=== PATIENT | male | born 1980 | race Caucasian/White ===

== ENCOUNTER → 2017-01-12 | Outpatient (CLI) | payer BC ==
--- NOTE | 2017-01-13 09:28 | XR ---
EXAMINATION TYPE: XR chest 2V DATE OF EXAM: 01/12/2017 COMPARISON: NONE INDICATION: Cough TECHNIQUE: Frontal and lateral views of the chest are obtained. FINDINGS: The heart size is normal. The pulmonary vasculature is normal. There is a cavitary appearing lesion in the right upper lobe measuring 4.2 cm. Additional workup for neoplasm is recommended. Some atelectasis may be along the minor fissure on the lateral projection may be at the right base. T his is less well-visualized frontal projection.. IMPRESSION: 1. Suspected cavitary lesion right apex. CT chest with contrast is recommended for additional evaluat ion. Cavitary pneumonia could be considered within the differential. A Red message has been communicated to Darrin Bailey DO via the [employer] Critical Result system on 01/13/2017 9:24 AM, Message ID [id number].
== END | disposition home or self-care (01) ==
LOC: RADXRMAIN 16:48
PROVIDERS: ATTEND Family Medicine
DX: R05 Cough (principal)
CPT/HCPCS: 71020

== ENCOUNTER → 2017-01-15 | Outpatient (CLI) | payer BC ==
--- NOTE | 2017-01-15 13:04 | CT ---
EXAMINATION TYPE: CT chest w con DATE OF EXAM: 01/15/2017 COMPARISON: Chest x-ray 01/12/2017 HISTORY: Patient complaiins of cough, fever, and body aches. Abnormal xray. CT DLP: 489 mGycm Automated exposure control for dose reduction was used. CONTRAST: CT scan of the chest is performed with IV Contrast, patient injected with 100 mL of Omnipaque 300. FINDINGS: LUNGS: Thick-walled cavitary lesion is noted within the right upper lobe and measures 4.5 x 4.4 cm. T here is surrounding inflammatory change. Micronodularity within the right upper lobe anteriorly. The remainder of the lungs are clear. No evidence of pleural effusion. MEDIASTINUM: Precarinal lymph node measures 1 cm in short axis. Right tracheobronchial lymph node chito sures 9 mm. Subcentimeter superior mediastinal lymph nodes measuring less than 1 cm. 8.4 mm low right paratracheal lymph node. 1 cm right hilar lymph node identified. Thoracic aorta is of normal caliber . The heart is not enlarged. UPPER ABDOMEN: Too small to characterize cystic lesion left hepatic lobe measures 5.3 mm. Mild distal esophageal wall thickening could reflect esophagitis. Correlate clinically. OTHER: No additional significant abnormality is seen. IMPRESSION: 1. Thick-walled cavitary lesion right upper lobe with surrounding inflammatory change and micronodula rity. There is also borderline to mild adenopathy within the mediastinum and right hilum. Findings casas ggest atypical infection such as tuberculosis, fungal infection as well as cavitary pneumonia. Malign savannah is considered less likely although not entirely excluded and follow-up until resolution is advis ed. Pulmonary consult recommended.
== END | disposition home or self-care (01) ==
LOC: RADCTMAIN 12:23
PROVIDERS: ATTEND Family Medicine
DX: R91.1 Solitary pulmonary nodule (principal); R59.0 Localized enlarged lymph nodes
CPT/HCPCS: 71260; Q9967

== ENCOUNTER 2017-01-18 09:47 | Inpatient (IN) | payer BC ==
[2017-01-18] MEDS ORDERED: IPRATROPIUM-ALBUTEROL 3 ML NEB INHALATION PRN (12:37)
[2017-01-18 13:34] LABS: Basophils # (A) 0.1 k/uL (0-0.2); Basophils % (A) 1 %; CH 31.3; CHCM 33.3; Eosinophils # (A) 0.1 k/uL (0-0.7); Eosinophils % (A) 1 %; HCT 46.7 % (39.0-53.0); HDW 2.46; HGB 15.2 gm/dL (13.0-17.5); Luc # (Auto) 0.16; Luc % (Auto) 1; Lymphocytes # (A) 2.2 k/uL (1.0-4.8); Lymphocytes % (A) 14 %; MCH 30.8 pg (25.0-35.0); MCHC 32.6 g/dL (31.0-37.0); MCV 94.4 fL (80.0-100.0); Mean Platelet Volume 6.9; Monocytes # (A) 0.9 k/uL (0-1.0); Monocytes % (A) 6 %; Neutrophils # (A) 11.9 k/uL (1.3-7.7); Neutrophils % (A) 78 %; RBC 4.95 m/uL (4.30-5.90); WBC 15.3 k/uL (3.8-10.6)
[2017-01-18 14:03] LABS: ALT 33 U/L (21-72); AST 16 U/L (17-59); Alkaline Phosphatase 78 U/L (38-126); Anion Gap 9 mmol/L; Blood Urea Nitrogen 10 mg/dL (9-20); Calcium 9.6 mg/dL (8.4-10.2); Carbon Dioxide 30 mmol/L (22-30); Chloride 99 mmol/L (98-107); Glucose 83 mg/dL (74-99); Non-African American GFR(MDRD) >60 (>60 ml/min/1.73 sqM); Potassium 4.8 mmol/L (3.5-5.1); Sodium 138 mmol/L (137-145); Total Bilirubin 0.5 mg/dL (0.2-1.3); Total Protein 7.2 g/dL (6.3-8.2)
[2017-01-18] MEDS: SODIUM CHLORIDE 0.9% 1,000 ML IV SCH (14:14)
[2017-01-18] MEDS: LEVOFLOXACIN 750MG-D5W PMX 750 MG in DEXTROSE/WATER 1 150ML.BAG IVPB SCH (14:14)
[2017-01-18] MEDS: PIPERACILLIN-TAZOBACTAM 3.375 GM in DEXTROSE/WATER 1 50ML.BAG IVPB SCH ×2 (16:11→23:27)
[2017-01-18] MEDS ORDERED: NICOTINE 21MG/24HR PATCH TRANSDERM STA (17:11)
[2017-01-18 18:40] LABS: ALT 27 U/L (21-72); AST 16 U/L (17-59); Alkaline Phosphatase 64 U/L (38-126); Anion Gap 10 mmol/L; Blood Urea Nitrogen 13 mg/dL (9-20); Calcium 9.2 mg/dL (8.4-10.2); Carbon Dioxide 28 mmol/L (22-30); Chloride 98 mmol/L (98-107); Glucose 95 mg/dL (74-99); Non-African American GFR(MDRD) >60 (>60 ml/min/1.73 sqM); Potassium 4.5 mmol/L (3.5-5.1); Sodium 136 mmol/L (137-145); Total Bilirubin 0.5 mg/dL (0.2-1.3); Total Protein 6.7 g/dL (6.3-8.2)
[2017-01-18 20:21] LABS: Basophils # (A) 0.1 k/uL (0-0.2); Basophils % (A) 1 %; CH 31.7; CHCM 33.5; Eosinophils # (A) 0.2 k/uL (0-0.7); Eosinophils % (A) 2 %; HCT 45.6 % (39.0-53.0); HDW 2.33; HGB 15.1 gm/dL (13.0-17.5); Luc # (Auto) 0.18; Luc % (Auto) 2; Lymphocytes # (A) 2.3 k/uL (1.0-4.8); Lymphocytes % (A) 22 %; MCH 31.5 pg (25.0-35.0); MCHC 33.1 g/dL (31.0-37.0); MCV 95.1 fL (80.0-100.0); Mean Platelet Volume 7.7; Monocytes # (A) 0.8 k/uL (0-1.0); Monocytes % (A) 8 %; Neutrophils # (A) 7.1 k/uL (1.3-7.7); Neutrophils % (A) 66 %; RBC 4.79 m/uL (4.30-5.90); RDW 12.9 % (11.5-15.5); WBC 10.7 k/uL (3.8-10.6); WBC (Perox) 10.34
[2017-01-18 20:41] LABS: Manual Review Performed; Toxic Granulation Present
--- NOTE | 2017-01-18 21:38 | HP ---
HISTORY AND PHYSICAL DATE OF ADMISSION: January 18, 2017. PRESENT COMPLAINT: Short of breath. HISTORY OF PRESENTING COMPLAINT: This is a very pleasant 36-year-old patient of Dr. Bailey whose chronic stable medical conditions include: GERD, anxiety depression. The patient has been having chest symptoms for about 2-1/2 weeks he states. He has a cough with some yellow sputum. Run down. Was treated by his family doctor and did not get better. Went to have a chest x- ray and CT scan. The CT scan as he was not getting better. He went to see Dr. Cr and Dr. Cr sent him down to the hospital in isolation to be isolated because of potential for being TB. Not coughing up any blood. The patient has decreased appetite. No obvious fevers. He has lost about 8 pounds in the last 1 week. The patient has no foreign travel. No exposure to any sick people. No contact with TB people. The patient is rather healthy otherwise he states and goes to work and comes home. The patient does smoke cigarettes and was drinking 8 beers a day up until two weeks ago when he cut back. Does about 1 marijuana joint a day. The patient's sputum production mainly in the morning. CT scan is showing a cavitary lesion. REVIEW OF SYSTEMS: Constitutional: Tired. HEENT: None. RESPIRATORY: As above. Cardiovascular none. Gastrointestinal none. Genitourinary: None. Musculoskeletal none. Dermatological and hematologic, lymphatic none. Psychiatry as above. Neurological none. PAST MEDICAL HISTORY: GERD, anxiety, depression. PAST SURGICAL HISTORY: Lump on the back of the head that was removed and found to have calcium deposits. SOCIAL HISTORY: . Smoked for the last 21 years. Drank about 8 beers a day up until 2 weeks ago. Marijuana once a day. The patient works at [employer], recycles metals. FAMILY HISTORY: Mother had stent in her 50s. HOME MEDICATIONS: 1. Prilosec 20 mg a day. 2. Levaquin 750 mg a day. ALLERGIES: Allergies to CODEINE. PHYSICAL EXAMINATION: Temperature 99.1, pulse 74, respiratory rate 16, blood pressure 100/65, pulse ox 97% on room air. GENERAL: Thin built, tired and lying in bed. EYES: Pupils equal. Conjunctivae pale. HEENT: Oral cavity normal. NECK: JVD not raised. Mass not palpable. Respiratory: Lungs slightly decreased breath sounds. Cardiovascular first and second sound normal. No edema. ABDOMEN: Soft, nontender. Liver and spleen not palpable. Lymphatics: No lymph nodes palpable in the neck or axilla. Psychiatry: Alert and oriented times three. Mood and affect normal. INVESTIGATIONS: White count 15.3, hemoglobin 15.2, platelets 652, potassium 4.8. BUN and creatinine is normal. CT scan of the chest shows thick walled cavitary lesion right upper lobe with surrounding inflammatory change and micro nodularity, some mild adenopathy. ASSESSMENT: 1. This is a patient who presents now with 2-1/2 week history of cough with sputum production. No obvious fever, not responding well to IV antibiotics. The patient is here in TB isolation from Dr. Cr office. The patient has no exposure to TB or TB people though. Given history of alcoholism, the patient could well be immunosuppressed. The patient has got an elevated white count. Neutrophilic shift which is more likely a case of acute infection process rather than TB given that he drinks quite a bit. This patient could have also infected cavitary lesion bullae that could be from before. I think TB is less likely. Of course, possibly still there thinking more in terms of an acute bacterial fungal infection. 2. Chronic nicotine dependence. 3. Chronic alcohol dependence. 4. Reactive thrombocytosis. PLAN: Patient currently on TB isolation, on Levaquin and Zosyn. We will add Lovenox for DVT prophylaxis. Care was discussed with the patient. Counseled against smoking. Will be given a nicotine patch. Spoke to Dr. Martinez over the phone. The patient is going for bronchoscopy by Pulmonary tomorrow. Copy to Dr. Bailey. MMODL / IJN: [id number] /
--- NOTE | 2017-01-18 21:43 | P.CONS ---
History of Present Illness - Reason for Consult Consult date: 01/18/17 - Chief Complaint Fever and cough - History of Present Illness Pleasant 36-year-old male presents to Hospital the direction of his physician because of difficulties with pneumonia. The patient relates that more than 2 weeks ago he became acutely ill. At the present time he was having cough some pleuritic discomfort in his chest associated with significant sputum production and fevers. He was having fevers and chills without rigors. He has significant malaise he did not feel well. He continued to work because his boss was out of town. However recently he was feeling much more poorly and took a day off of work. He then sought medical attention. Outpatient chest x- ray was performed that was abnormal. He was then referred to pulmonary. At the office chest x-ray was performed that was abnormal and computed tomography scan was requested. With a very abnormal computed tomography scan the patient was directly admitted to hospital for further intervention. It was concerns to pulmonary abscess and tuberculosis the infectious diseases consultation was requested. The patient relates that he continues to have some cough especially in the morning productive of a large amount of material. However he has no hemoptysis. His appetite has been somewhat off and is lost a bit of weight and is very quite thin. As noted he's had no significant chills or night sweats but did have some fevers. Review of Systems HEENT:Denies headache or acute visual change. Denies sinus or mouth discomforts. Denies neck stiffness or pain. Denies significant oral cavity pain. Denies difficulty on swallowing. Lungs: As per the HPI Cardiovascular: Denies significant shortness of breath, chest pain, chest wall pain, orthopnea, dyspnea on exertion, syncope Gastrointestinal:Denies nausea, vomiting, diarrhea, constipation, hematemesis, melena, hematochezia. No no significant change of bowel habit noticed. Musculoskeletal: denies significant myalgias or arthralgias. No new joint swelling. Denies new back pain. Skin: Denies new rash or lesions. No new ulcers or wounds are related.. Neuro: Denies headache or visual change. Denies any new onset weakness or difficulty with ambulation. Denies falls or seizures. Psychiatric:Denies anxiety or depression. Endocrine: Denies significant fatigue, has had some mild weight loss Past Medical History Past Medical History: GERD/Reflux History of Any Multi-Drug Resistant Organisms: None Reported Additional Past Surgical History / Comment(s): As a child had lumps back of head -removed and found to be calcium deposits. Past Anesthesia/Blood Transfusion Reactions: No Reported Reaction Additional Psychological History / Comment(s): and lives with family with the and his twins who are 6. No 1 else is ill. No family history of tuberculosis. However strong family history of lung disease and smoking. Patient is a heavy tobacco smoker greater than a pack a day since a young age. Also drinks alcohol, almost on a daily basis. Often drinks to the point of passing out. No other recreational drug use is noted. No injection drug use. No experience. No international travel. 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 He is now 64 yrs old. Mother Family Medical History: Pneumonia Additional Family Medical History / Comment(s): Mother gets pneumonia a couple times a year. She is 51 yrs old. Medications and Allergies Home Medications and Allergies Comment(s): Current Medications Albuterol/Ipratropium (Duoneb 0.5 Mg-3 Mg/3 Ml Soln) 3 ml INHALATION RT-QID PRN PRN Reason: Shortness Of Breath Or Wheezing Enoxaparin Sodium (Lovenox) 40 mg SQ HS [facility] Levofloxacin 750 mg/ IV (Solution) 150 mls @ 100 mls/hr IVPB Q24H [facility] Last Admin: 01/18/17 14:14 Dose: 100 mls/hr Piperacillin/Tazobactam/ (Dextrose 3.375 gm/ IV Solution) 50 mls @ 12.5 mls/hr IVPB Q8HR [facility] Last Admin: 01/18/17 16:11 Dose: 12.5 mls/hr Sodium Chloride (Saline 0.9%) 1,000 mls @ 20 mls/hr IV .Q24H [facility] Last Admin: 01/18/17 14:14 Dose: 20 mls/hr Nicotine (Habitrol 21mg/24hr Patch) 1 patch TRANSDERM DAILY [facility] Home Medications Medication Instructions Recorded Confirmed Type Ibuprofen [Advil] 200 mg PO Q8HR PRN 01/18/17 01/18/17 History Levofloxacin [Levaquin] 750 mg PO DAILY 01/18/17 01/18/17 History Omeprazole Magnesium [Prilosec OTC] 20 mg PO DAILY 01/18/17 01/18/17 History Allergies Allergy/AdvReac Type Severity Reaction Status Date / Time codeine AdvReac Unknown Verified 01/18/17 12:14 Childhood Physical Exam Vitals: Vital Signs Temp Pulse Resp BP Pulse Ox 01/18/17 15:00 99.1 F 74 16 100/65 97 01/18/17 11:01 99.1 F 74 18 98/56 95 Intake and Output 01/18/17 01/18/17 01/18/17 06:59 14:59 22:59 Other: # Voids 1 # Bowel Movements 0 Weight 55.338 kg Patient Weight 01/19/17 06:59 Weight 55.338 kg Pleasant 36-year-old male who is of a thin build, he is somewhat tanned because of his work outside, does not appear to be acutely ill HEENT: Anicteric conjunctiva are pink and moist nasal mucosa grossly intact without significant lesions, there is no thrush. Dentition somewhat warm for age Neck: The neck is supple without significant lymphadenopathy or thyromegaly. Lungs: Good bilateral air entry there are scattered expiratory wheezes. Improved minimally with cough. There is evidence of the right posterior upper zone with amphoric sounds, no significant dullness was noted. Few crackles at the bases are noted. Heart: Regular rate and rhythm with an audible S1-S2, no S3 no S4. There is no significant murmur click or rub, PMI was nondisplaced. Abdomen: Positive bowel sounds soft and nontender without palpable masses or organomegaly. There was no guarding or rebound. Extremities: The upper extremities have excellent pulses they are symmetric, no significant petechiae or telangiectasia. No splinter hemorrhages were noted. The lower extremities are free from significant edema. The peripheral pulses were 2+ and symmetric. Neuro: Awake alert oriented to person place and time. There are no acute new gross focal sensory motor deficits. Results CBC & Chem 7: 01/18/17 18:08 01/18/17 18:08 Labs: Abnormal Lab Results - Last 24 Hours (Table) 0901/18/17 01/18/17 Range/Units 12:24 12:50 18:08 WBC 15.3 H 10.7 H (3.8-10.6) k/uL Plt Count 652 H 565 H (150-450) k/uL Neutrophils # 11.9 H (1.3-7.7) k/uL Sodium (137-145) mmol/L AST 16 L (17-59) U/L 01/18/17 Range/Units 18:08 WBC (3.8-10.6) k/uL Plt Count (150-450) k/uL Neutrophils # (1.3-7.7) k/uL Sodium 136 L (137-145) mmol/L AST 16 L (17-59) U/L Laboratory Results WBC 10.7 k/uL (3.8-10.6) H 01/18/17 18:08 RBC 4.79 m/uL (4.30-5.90) 01/18/17 18:08 Hgb 15.1 gm/dL (13.0-17.5) 01/18/17 18:08 Hct 45.6 % (39.0-53.0) 01/18/17 18:08 MCV 95.1 fL (80.0-100.0) 01/18/17 18:08 MCH 31.5 pg (25.0-35.0) 01/18/17 18:08 MCHC 33.1 g/dL (31.0-37.0) 01/18/17 18:08 RDW 12.9 % (11.5-15.5) 01/18/17 18:08 Plt Count 565 k/uL (150-450) H 01/18/17 18:08 Neutrophils % 66 % 01/18/17 18:08 Lymphocytes % 22 % 01/18/17 18:08 Monocytes % 8 % 01/18/17 18:08 Eosinophils % 2 % 01/18/17 18:08 Basophils % 1 % 01/18/17 18:08 Neutrophils # 7.1 k/uL (1.3-7.7) 01/18/17 18:08 Lymphocytes # 2.3 k/uL (1.0-4.8) 01/18/17 18:08 Monocytes # 0.8 k/uL (0-1.0) 01/18/17 18:08 Eosinophils # 0.2 k/uL (0-0.7) 01/18/17 18:08 Basophils # 0.1 k/uL (0-0.2) 01/18/17 18:08 Manual Slide Review Performed 01/18/17 18:08 Toxic Granulation Present 01/18/17 18:08 Sodium 136 mmol/L (137-145) L 01/18/17 18:08 Potassium 4.5 mmol/L (3.5-5.1) 01/18/17 18:08 Chloride 98 mmol/L (98-107) 01/18/17 18:08 Carbon Dioxide 28 mmol/L (22-30) 01/18/17 18:08 Anion Gap 10 mmol/L 01/18/17 18:08 BUN 13 mg/dL (9-20) 01/18/17 18:08 Creatinine 0.99 mg/dL (0.66-1.25) 01/18/17 18:08 Est GFR (MDRD) Af Amer >60 (>60 ml/min/1.73 sqM) 01/18/17 18:08 Est GFR (MDRD) Non-Af >60 (>60 ml/min/1.73 sqM) 01/18/17 18:08 Glucose 95 mg/dL (74-99) 01/18/17 18:08 Calcium 9.2 mg/dL (8.4-10.2) 01/18/17 18:08 Total Bilirubin 0.5 mg/dL (0.2-1.3) 01/18/17 18:08 AST 16 U/L (17-59) L 01/18/17 18:08 ALT 27 U/L (21-72) 01/18/17 18:08 Alkaline Phosphatase 64 U/L (38-126) 01/18/17 18:08 Total Protein 6.7 g/dL (6.3-8.2) 01/18/17 18:08 Albumin 3.5 g/dL (3.5-5.0) 01/18/17 18:08 Chest x-ray: report reviewed CT scan - chest: image reviewed (The significant cavitary lesion right upper lobe is noted) Assessment and Plan (1) Cavitary pneumonia Narrative/Plan: 36-year-old male presents to the hospital with instructions physician because of difficulties by his chest x-ray. Patient has a two-week history of significant illness. First associated with fevers chills cough and sputum production. Continues to have some morning sputum production. The high-grade fevers and chills have improved. He's had some mild weight loss. He is noted to have outpatient workup that included a PPD to his right arm that has been read as negative. Imaging studies of noted show evidence of the cavitary lesion in the right upper lobe. Somewhat thick wall. Indicating potential lack of acuity to this process. He has been seen by pulmonology. There are plans for bronchoscopy tomorrow for further evaluation of this significant cavitary lesion. If bronchoscopy AFB comes back negative his AFB isolation may then be discontinued. In the meantime sputum AFBs have been requested. TB seems to be quite unlikely. With his history of smoking and what appears to be significant alcohol use the possibility of lung abscess and potentially an infected bleb. Antimicrobial therapy with Zosyn and Levaquin are being utilized for now. No history of MRSA infection. We'll continue ongoing supportive care. Respiratory treatments are being given. Pain control is not an issue at this time Fever will be controlled. Sputum and blood cultures are in process We'll check a pre-albumin and supplement as needed, multivitamin will be given and monitor. Status: Acute (2) Fever Status: Acute (3) Leukocytosis Status: Acute (4) Smoker Status: Acute (5) Alcohol use Status: Acute
[2017-01-18] MEDS: ENOXAPARIN 40 MG/0.4 ML SYRINGE SQ SCH (23:27)
[2017-01-18 23:35] LABS: Erythrocyte Sedimentation Rate 26 mm/hr (0-15)
[2017-01-19] MEDS: PIPERACILLIN-TAZOBACTAM 3.375 GM in DEXTROSE/WATER 1 50ML.BAG IVPB SCH ×3 (07:32→23:51)
[2017-01-19] MEDS: NICOTINE 21MG/24HR PATCH TRANSDERM SCH (07:32)
[2017-01-19 09:47] LABS: Basophils # (A) 0.1 k/uL (0-0.2); Basophils % (A) 1 %; CH 31.3; CHCM 33.6; Eosinophils # (A) 0.1 k/uL (0-0.7); Eosinophils % (A) 1 %; HCT 47.3 % (39.0-53.0); HDW 2.48; HGB 15.9 gm/dL (13.0-17.5); Luc # (Auto) 0.13; Luc % (Auto) 1; Lymphocytes # (A) 1.8 k/uL (1.0-4.8); Lymphocytes % (A) 17 %; MCH 31.5 pg (25.0-35.0); MCHC 33.6 g/dL (31.0-37.0); MCV 93.5 fL (80.0-100.0); Mean Platelet Volume 6.1; Monocytes # (A) 0.7 k/uL (0-1.0); Monocytes % (A) 6 %; Neutrophils % (A) 74 %; RBC 5.06 m/uL (4.30-5.90); RDW 11.9 % (11.5-15.5); WBC 10.8 k/uL (3.8-10.6); WBC (Perox) 11.28
[2017-01-19 09:52] LABS: Anion Gap 9 mmol/L; Blood Urea Nitrogen 12 mg/dL (9-20); Calcium 9.6 mg/dL (8.4-10.2); Carbon Dioxide 28 mmol/L (22-30); Chloride 101 mmol/L (98-107); Glucose 90 mg/dL (74-99); Non-African American GFR(MDRD) >60 (>60 ml/min/1.73 sqM); Potassium 4.9 mmol/L (3.5-5.1); Sodium 138 mmol/L (137-145)
[2017-01-19] MEDS: MULTIVITAMINS, THERA 1 EACH TAB PO SCH (12:35)
[2017-01-19] MEDS: LEVOFLOXACIN 750MG-D5W PMX 750 MG in DEXTROSE/WATER 1 150ML.BAG IVPB SCH (12:37)
[2017-01-19] MEDS: SODIUM CHLORIDE 0.9% 1,000 ML IV SCH (14:24)
--- NOTE | 2017-01-19 14:49 | XR ---
EXAMINATION TYPE: XR chest 2V DATE OF EXAM: 01/19/2017 COMPARISON: Chest x-ray January 12, 2017. CT chest January 15, 2017. HISTORY: Productive cough, possible TB. TECHNIQUE: Frontal and lateral views of the chest are obtained. FINDINGS: Cavitary lesion right upper lobe is redemonstrated. Wall appears slightly diminished in thi ckness versus prior studies. There is no new focal air space opacity, pleural effusion, or pneumothor ax seen. The cardiac silhouette size is within normal limits. The osseous structures are intact. IMPRESSION: Persistent cavitary lesion right upper lobe with improvement in wall thickness. No new i nfiltrate is present.
[2017-01-19 15:04] VITALS: BMI 20.2
[2017-01-19] MEDS ORDERED: NICOTINE POLACRILEX 2 MG GUM BUCCAL PRN (15:59)
[2017-01-19] MEDS: LORazepam 0.5 MG TAB PO SCH (16:25)
--- NOTE | 2017-01-19 17:18 | CONS ---
CONSULTATION This is a 36-year-old male who was seen by my partner yesterday in the clinic. He apparently had not been feeling well for a couple of weeks. He apparently saw his primary doctor, Dr. Bailey. He had been treated with antibiotics for what was thought to be like a bronchitis. He was coughing up some phlegm. He had decreased appetite with weight loss. He apparently had a chest x-ray done and a CT scan. Apparently it showed a cavitary lesion. It is not clear to me where the lesion was, because I have not looked at the scans myself. I do not have them. I did order a chest x-ray. He was sent over here to be seen by Dr. Martinez. The concern was possible aspiration pneumonia, anaerobic lung abscess versus tuberculosis. The patient is resting comfortably. He was kept n.p.o. I am not going to be able to do his bronchoscopy today. He does smoke cigarettes and was drinking 8 beers a day. PAST MEDICAL HISTORY: 1. GERD. 2. Anxiety. 3. Depression. SURGICAL HISTORY: Surgical history includes some sort of lump on his back that was surgically removed. SOCIAL HISTORY: Positive for the tobacco use and alcohol use. He drinks about 8 beers a day, smokes about 2 packs a day. Marijuana once a day. FAMILY HISTORY: Positive for cardiac disease in his mother. HOME MEDICATIONS: Home medications include: 1. Prilosec. 2. Levaquin (given to him by Dr. Bailey). ALLERGIES: CODEINE. REVIEW OF SYSTEMS: CONSTITUTIONAL: Negative. NEUROLOGIC: Negative. HEENT: Negative. CARDIOVASCULAR: Negative. PULMONARY: Shortness of breath, cough, phlegm. No hemoptysis. GI: Decreased appetite. : Negative. HEMATOLOGIC: Negative. IMMUNOLOGIC: Negative. ENDOCRINOLOGIC: Negative. DERMATOLOGIC: Negative. PHYSICAL EXAMINATION: Current vital signs include temperature 98, heart rate 84, respiratory rate 16, blood pressure 105/78, mean 87. Room-air saturation 98%. Appears in no acute distress. HEENT examination is grossly unremarkable. Mucous membranes are moist. No oral lesions. NECK: Supple. Full range of motion. No adenopathy or thyromegaly. Neck veins are flat. Cardiovascular examination reveals regular rhythm and rate. S1, S2 normal. No S3, S4 or murmur. Lungs reveal diminished breath sounds, a few scattered rhonchi. No wheezes or crackles. ABDOMEN: Soft. Bowel sounds are heard. Extremities are intact. No cyanosis, clubbing or edema. Skin without rash. Neurologic examination is brief but nonfocal. LABORATORY DATA: No microbiology to report. White count was 10.8; hemoglobin, hematocrit and platelet count essentially normal. Sodium, potassium, chloride, CO2 all normal. BUN and creatinine were normal. The rest of the comprehensive metabolic profile was normal. Sedimentation rate was 26. I did order a chest x-ray, but I have not had an opportunity to see this yet. Dr. Martinez's note is appreciated. ASSESSMENT: 1. Right upper lobe cavitary lesion, likely related to an anaerobic lung abscess in a patient who likely aspirated. 2. Unusual infection such as fungal infection and/or TB certainly is a concern, but much less likely. 3. History of chronic tobacco and alcohol abuse. 4. History of gastroesophageal reflux disease. 5. History of anxiety. 6. History of depression. PLAN: Will order a chest x-ray, 2-view. Additional recommendations and suggestions are forthcoming. I have not seen either the x-ray or the CT scan. Antibiotic per Dr. Martinez. Will continue to follow. No additional recommendations are made. MMODL / IJN: [id number] /
--- NOTE | 2017-01-19 21:21 | P.PN ---
Subjective Principal diagnosis: Pneumonia Pleasant 36-year-old male presents to Hospital the direction of his physician because of difficulties with pneumonia. The patient relates that more than 2 weeks ago he became acutely ill. At the present time he was having cough some pleuritic discomfort in his chest associated with significant sputum production and fevers. He was having fevers and chills without rigors. He has significant malaise he did not feel well. He continued to work because his boss was out of town. However recently he was feeling much more poorly and took a day off of work. He then sought medical attention. Outpatient chest x- ray was performed that was abnormal. He was then referred to pulmonary. At the office chest x-ray was performed that was abnormal and computed tomography scan was requested. With a very abnormal computed tomography scan the patient was directly admitted to hospital for further intervention. It was concerns to pulmonary abscess and tuberculosis the infectious diseases consultation was requested. The patient relates that he continues to have some cough especially in the morning productive of a large amount of material. However he has no hemoptysis. His appetite has been somewhat off and is lost a bit of weight and is very quite thin. As noted he's had no significant chills or night sweats but did have some fevers. Patient has now been seen by pulmonary critical care. Plan for bronchoscopy in the morning. At the present time will have samples for acid-fast bacilli, fungus, routine bacterial cultures, viral panel and cytology. 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 Dentition somewhat warm for age Neck: The neck is supple without significant lymphadenopathy or thyromegaly. Lungs: Good bilateral air entry there are scattered expiratory wheezes. Improved minimally with cough. There is evidence of the right posterior upper zone with amphoric sounds, no significant dullness was noted. Few crackles at the bases are noted. Heart: Regular rate and rhythm with an audible S1-S2, no S3 no S4. There is no significant murmur click or rub, PMI was nondisplaced. Abdomen: Positive bowel sounds soft and nontender without palpable masses or organomegaly. There was no guarding or rebound. Extremities: The upper extremities have excellent pulses they are symmetric, no significant petechiae or telangiectasia. No splinter hemorrhages were noted. The lower extremities are free from significant edema. The peripheral pulses were 2+ and symmetric. Neuro: Awake alert oriented to person place and time. There are no acute new gross focal sensory motor deficits. - Labs CBC & Chem 7: 01/19/17 09:15 01/19/17 09:15 Labs: Abnormal Lab Results - Last 24 Hours (Table) 01/18/17 01/19/17 Range/Units 18:08 09:15 WBC 10.8 H (3.8-10.6) k/uL Plt Count 674 H (150-450) k/uL Neutrophils # 8.0 H (1.3-7.7) k/uL ESR 26 H (0-15) mm/hr Microbiology - Last 24 Hours (Table) 01/18/17 12:50 Blood Culture - Preliminary Blood No Growth after 24 hours 01/18/17 12:35 Blood Culture - Preliminary Blood No Growth after 24 hours Laboratory Results WBC 10.8 k/uL (3.8-10.6) H 01/19/17 09:15 RBC 5.06 m/uL (4.30-5.90) 01/19/17 09:15 Hgb 15.9 gm/dL (13.0-17.5) 01/19/17 09:15 Hct 47.3 % (39.0-53.0) 01/19/17 09:15 MCV 93.5 fL (80.0-100.0) 01/19/17 09:15 MCH 31.5 pg (25.0-35.0) 01/19/17 09:15 MCHC 33.6 g/dL (31.0-37.0) 01/19/17 09:15 RDW 11.9 % (11.5-15.5) 01/19/17 09:15 Plt Count 674 k/uL (150-450) H 01/19/17 09:15 Neutrophils % 74 % 01/19/17 09:15 Lymphocytes % 17 % 01/19/17 09:15 Monocytes % 6 % 01/19/17 09:15 Eosinophils % 1 % 01/19/17 09:15 Basophils % 1 % 01/19/17 09:15 Neutrophils # 8.0 k/uL (1.3-7.7) H 01/19/17 09:15 Lymphocytes # 1.8 k/uL (1.0-4.8) 01/19/17 09:15 Monocytes # 0.7 k/uL (0-1.0) 01/19/17 09:15 Eosinophils # 0.1 k/uL (0-0.7) 01/19/17 09:15 Basophils # 0.1 k/uL (0-0.2) 01/19/17 09:15 Manual Slide Review Performed 01/18/17 18:08 Toxic Granulation Present 01/18/17 18:08 ESR 26 mm/hr (0-15) H 01/18/17 18:08 Sodium 138 mmol/L (137-145) 01/19/17 09:15 Potassium 4.9 mmol/L (3.5-5.1) 01/19/17 09:15 Chloride 101 mmol/L (98-107) 01/19/17 09:15 Carbon Dioxide 28 mmol/L (22-30) 01/19/17 09:15 Anion Gap 9 mmol/L 01/19/17 09:15 BUN 12 mg/dL (9-20) 01/19/17 09:15 Creatinine 0.95 mg/dL (0.66-1.25) 01/19/17 09:15 Est GFR (MDRD) Af Amer >60 (>60 ml/min/1.73 sqM) 01/19/17 09:15 Est GFR (MDRD) Non-Af >60 (>60 ml/min/1.73 sqM) 01/19/17 09:15 Glucose 90 mg/dL (74-99) 01/19/17 09:15 Calcium 9.6 mg/dL (8.4-10.2) 01/19/17 09:15 Total Bilirubin 0.5 mg/dL (0.2-1.3) 01/18/17 18:08 AST 16 U/L (17-59) L 01/18/17 18:08 ALT 27 U/L (21-72) 01/18/17 18:08 Alkaline Phosphatase 64 U/L (38-126) 01/18/17 18:08 Total Protein 6.7 g/dL (6.3-8.2) 01/18/17 18:08 Albumin 3.5 g/dL (3.5-5.0) 01/18/17 18:08 [id number] 236.0 mg/dL (99.0-242.0) 01/18/17 18:08 Microbiology 01/18/17 12:50 Blood Blood Culture - Preliminary No Growth after 24 hours 01/18/17 12:35 Blood Blood Culture - Preliminary No Growth after 24 hours Assessment and Plan (1) Cavitary pneumonia Narrative/Plan: 36-year-old male presents to the hospital with instructions physician because of difficulties by his chest x-ray. Patient has a two-week history of significant illness. First associated with fevers chills cough and sputum production. Continues to have some morning sputum production. The high-grade fevers and chills have improved. He's had some mild weight loss. He is noted to have outpatient workup that included a PPD to his right arm that has been read as negative. Imaging studies of noted show evidence of the cavitary lesion in the right upper lobe. Somewhat thick wall. Indicating potential lack of acuity to this process. He has been seen by pulmonology. There are plans for bronchoscopy tomorrow for further evaluation of this significant cavitary lesion. If bronchoscopy AFB comes back negative his AFB isolation may then be discontinued. In the meantime sputum AFBs have been requested. TB seems to be quite unlikely. With his history of smoking and what appears to be significant alcohol use the possibility of lung abscess and potentially an infected bleb. Antimicrobial therapy with Zosyn and Levaquin are being utilized for now. No history of MRSA infection. We'll continue ongoing supportive care. Respiratory treatments are being given. Pain control is not an issue at this time Fever will be controlled. Sputum and blood cultures are in process and are negative so far Smoking cessation and anxiety have been supported Multivitamin is being utilized. Patient's advised a high protein intake. Bronchoscopy will occur tomorrow deep specimen will be obtained, stat AFB smear should be obtained to determine his ability to be discharged. Status: Acute (2) Fever Status: Acute (3) Leukocytosis Status: Acute (4) Smoker Status: Acute (5) Alcohol use Status: Acute
[2017-01-19] MEDS: ENOXAPARIN 40 MG/0.4 ML SYRINGE SQ SCH (23:01)
[2017-01-20] MEDS: LORazepam 0.5 MG TAB PO SCH ×4 (04:26→22:13)
[2017-01-20] MEDS: PIPERACILLIN-TAZOBACTAM 3.375 GM in DEXTROSE/WATER 1 50ML.BAG IVPB SCH ×2 (07:46→16:36)
[2017-01-20] MEDS: NICOTINE 21MG/24HR PATCH TRANSDERM SCH (07:47)
[2017-01-20 08:56] LABS: Anion Gap 9 mmol/L; Blood Urea Nitrogen 12 mg/dL (9-20); Calcium 9.5 mg/dL (8.4-10.2); Carbon Dioxide 26 mmol/L (22-30); Chloride 102 mmol/L (98-107); Glucose 85 mg/dL (74-99); Non-African American GFR(MDRD) >60 (>60 ml/min/1.73 sqM); Potassium 4.9 mmol/L (3.5-5.1); Sodium 137 mmol/L (137-145)
--- NOTE | 2017-01-20 09:12 | PN ---
PROGRESS NOTE DATE OF SERVICE: 01/19/2017 PRESENTING COMPLAINT: Cough. INTERVAL HISTORY: This is a patient who drinks quite a bit of alcohol and smoker. Admitted with a cavitary lesion. At this point, etiology is unclear. Strongly suspicious to be abscess: TB remains in the differential. Patient's is present in the room. Patient is very keen to leave the hospital, go outside on the campus. There was no bronchoscopy scheduled for this morning. REVIEW OF SYSTEMS: Done for constitutional, cardiovascular, GI, pulmonary with findings as above. The patient still bringing up some yellow sputum especially in the morning. CURRENT MEDICATION: Reviewed, that include IV Levaquin and Zosyn. PHYSICAL EXAMINATION: Temperature 98.1, pulse 76, respirations 18, blood pressure 102/72, pulse ox 100% on room air. GENERAL APPEARANCE: Sitting up, somewhat anxious-appearing. EYES; Pupils equal, conjunctivae normal. NECK: JVD not raised. Mass not palpable. RESPIRATORY EFFORT: Lungs decreased breath sounds. CARDIOVASCULAR: First and second sounds, no edema. ABDOMEN: Soft, nontender. Liver and spleen not palpable. PSYCHIATRY: Alert and oriented x3. Mood and affect very anxious-appearing. INVESTIGATIONS: White count 10.8, potassium 4.9. ASSESSMENT: 1. Cavitary lesion, suspect abscess. Could be fungal, less likely TB. 2. Chronic nicotine dependence. 3. Chronic alcohol dependence. 4. Reactive [QAMARKER). 5. Anxiety, uncontrolled. PLAN: I had a lengthy talk with the patient and present, told him it is not safe for him to go out and should not be done until the TB is taken care of. I will also add nicotine gum with patch. Will also give some Ativan. Care was discussed at length. Total time spent was 40 minutes with over 25 minutes of discussion. MMODL / IJN: [id number] /
[2017-01-20 10:24] LABS: Basophils # (A) 0.1 k/uL (0-0.2); Basophils % (A) 1 %; CH 30.8; CHCM 32.8; Eosinophils # (A) 0.2 k/uL (0-0.7); Eosinophils % (A) 3 %; HCT 46.6 % (39.0-53.0); HDW 2.43; HGB 15.7 gm/dL (13.0-17.5); Luc # (Auto) 0.16; Luc % (Auto) 2; Lymphocytes # (A) 1.8 k/uL (1.0-4.8); Lymphocytes % (A) 21 %; MCH 31.7 pg (25.0-35.0); MCHC 33.6 g/dL (31.0-37.0); MCV 94.2 fL (80.0-100.0); Mean Platelet Volume 7.4; Monocytes # (A) 0.6 k/uL (0-1.0); Monocytes % (A) 7 %; Neutrophils # (A) 5.6 k/uL (1.3-7.7); Neutrophils % (A) 67 %; RBC 4.94 m/uL (4.30-5.90); WBC 8.5 k/uL (3.8-10.6); WBC (Perox) 8.15
--- NOTE | 2017-01-20 11:48 | P.PN ---
Subjective Progress note dated 01/20/2017 This is a 36-year-old male who was seen by my partner in the clinic 2 days ago. His primary physician is Dr. Renae Torrez. He apparently developed a bronchitis/upper respiratory like illness. Treated with antibiotics without much improvement. Chest x-ray and CAT scan showed a cavitary lesion in the right upper lobe. The patient was placed on Levaquin and Zosyn per infectious disease. Today we'll do a bronchoscopy airway examination therapy lavage and BAL and also plan on doing brushes and biopsies of the right upper lobe lesion. On lateral chest x-ray looks like it might be the posterior segment of the right upper lobe. The patient otherwise is doing reasonably well. I do not believe this is likely tuberculosis but certainly has a concern. The dose the patient does smoke cigarettes and does drink 8 beers a day. I suspect this is related to aspiration anaerobic lung abscess. Objective - Vital Signs Vital signs: Vital Signs Temp 98.0 F 01/20/17 07:00 Pulse 83 01/20/17 07:00 Resp 16 01/20/17 07:00 BP 106/62 01/20/17 07:00 Pulse Ox 96 01/20/17 07:00 Intake & Output 01/19/17 01/20/17 01/20/17 18:59 06:59 18:59 Weight 55.338 kg Other: Voiding Method Toilet # Voids 3 1 - Exam No acute distress, oriented 3. HEENT examination reveals it to be relatively normal. Mucous membranes are moist. No oral lesions. Neck supple. Full range of motion. No adenopathy or thyromegaly. Neck veins are flat. Cardiovascular examination reveals regular rhythm rate. S1-S2 normal. Lungs reveal few scattered rhonchi. No wheezes or crackles. Breath sounds are equal but slightly diminished. Abdomen soft bowel sounds are heard. Extremities are intact. No cyanosis clubbing or edema. Skin without rash. Neurologic examination is nonfocal. - Labs CBC & Chem 7: 01/20/17 07:58 01/20/17 07:58 Labs: Abnormal Lab Results - Last 24 Hours (Table) 01/19/17 01/20/17 Range/Units 09:15 07:58 Plt Count 605 H (150-450) k/uL Prealbumin 10.0 L (18.0-42.0) mg/dL Microbiology - Last 24 Hours (Table) 01/18/17 12:50 Blood Culture - Preliminary Blood No Growth after 24 hours 01/18/17 12:35 Blood Culture - Preliminary Blood No Growth after 24 hours Assessment and Plan (1) Lung abscess Status: Acute (2) Alcohol use Status: Acute (3) Cavitary pneumonia Status: Acute (4) Fever Status: Acute (5) Leukocytosis Status: Acute (6) Smoker Status: Acute Plan: Plan dated 01/20/2017 The patient will undergo bronchoscopy today. The patient will have washes brushes and biopsies of the right upper lobe lesion. Additional recommendations and suggestions are forthcoming. Prognosis is guarded. Continue on antibiotics. We'll follow. Time with Patient: Less than 30
[2017-01-20] MEDS: MULTIVITAMINS, THERA 1 EACH TAB PO SCH (12:14)
[2017-01-20] MEDS: LEVOFLOXACIN 750MG-D5W PMX 750 MG in DEXTROSE/WATER 1 150ML.BAG IVPB SCH (13:13)
[2017-01-20] MEDS: SODIUM CHLORIDE 0.9% 1,000 ML IV SCH (14:16)
[2017-01-20] MEDS ORDERED: PROPOFOL 10 MG/ML 20 ML VIAL IV ONE (14:58)
[2017-01-20] MEDS ORDERED: MIDAZOLAM 2 MG/2 ML VIAL ONE (14:58)
[2017-01-20] MEDS ORDERED: LIDOCAINE 1% INJ 10MG/ML (20 ML MDV) ONE (14:58)
[2017-01-20] MEDS ORDERED: KETAMINE 10 MG/ML 20 ML VIAL ONE (14:58)
[2017-01-20] MEDS ORDERED: GLYCOPYRROLATE 0.2 MG/ML 2 ML VIAL ONE (14:58)
[2017-01-20] MEDS ORDERED: IV FLUID CONTINUATION 500 ML IV ONE (15:17)
[2017-01-20] MEDS ORDERED: LIDOCAINE 2% INJ 20 MG/ML INTRATRACH ONE (15:31)
--- NOTE | 2017-01-20 16:14 | XR ---
EXAMINATION TYPE: XR chest 1V portable DATE OF EXAM: 01/20/2017 COMPARISON: Prior chest x-ray 01/19/2017 HISTORY: Status post bronchoscopy TECHNIQUE: Single frontal view of the chest is obtained. FINDINGS: There is no evident pneumothorax or pleural effusion. Right upper lobe cavitary lesion is again noted. There are overlying cardiac leads. IMPRESSION: No evident complication status post bronchoscopy.
--- NOTE | 2017-01-20 16:15 | FL ---
EXAMINATION TYPE: FL bronchoscopy DATE OF EXAM: 01/20/2017 COMPARISON: NONE HISTORY: Right upper lobe lesion Fluoroscopy support supplied to the referring clinician. See dictated report from pulmonary, 2 minut es 57 seconds fluoroscopy time, 2 intraoperative images document the procedure
--- NOTE | 2017-01-20 17:19 | PN ---
PROGRESS NOTE DATE OF SERVICE: 01/20/17 PRESENT COMPLAINT: Cough. INTERVAL HISTORY: This patient drinks quite a bit of alcohol and smokes. Admitted with a cavitary lesion. Being ruled out for TB though felt to be unlikely. [place] more likely to be infectious process or could be fungal. The patient is in an isolated room. is present. Sputum production has gone down. Patient is sitting up on his laptop. REVIEW OF SYSTEMS: Done for constitutional, cardiovascular, GI, pulmonary, relevant findings as above. CURRENT MEDICATIONS: Reviewed that include IV Levaquin and Zosyn. PHYSICAL EXAMINATION: Temperature 98, pulse 83, respiratory rate 16, blood pressure 106/62, pulse ox 96% on room air. General appearance sitting on bed, comfortable. Eyes pupils equal. Conjunctivae normal. Neck JVD not raised. Mass not palpable. Respiratory effort lungs decreased breath sounds. Cardiovascular first and second sounds. No edema. ABDOMEN: Soft, nontender. Liver and spleen not palpable. Psychiatry: Alert and oriented times three. Mood and affect much more comfortable today. INVESTIGATIONS: White count 8.5, potassium 4.9 and urine Legionella antigen is negative. ASSESSMENT: 1. Cavitary lesions suspect abscess, could be fungal, less likely TB. 2. Chronic nicotine dependence. 3. Chronic alcohol dependence. 4. Anxiety not otherwise specified. Better controlled. PLAN: Care was discussed with the patient and . Await bronchoscopy. In the mean time, continue the antibiotics. Like stated before, TB felt to be less likely. MMODL / IJN: [id number] /
[2017-01-20 20:26] LABS: RBC, Body Fluid 13333 /uL
--- NOTE | 2017-01-20 20:42 | P.PN ---
Subjective Principal diagnosis: Pneumonia Pleasant 36-year-old male presents to Hospital the direction of his physician because of difficulties with pneumonia. The patient relates that more than 2 weeks ago he became acutely ill. At the present time he was having cough some pleuritic discomfort in his chest associated with significant sputum production and fevers. He was having fevers and chills without rigors. He has significant malaise he did not feel well. He continued to work because his boss was out of town. However recently he was feeling much more poorly and took a day off of work. He then sought medical attention. Outpatient chest x- ray was performed that was abnormal. He was then referred to pulmonary. At the office chest x-ray was performed that was abnormal and computed tomography scan was requested. With a very abnormal computed tomography scan the patient was directly admitted to hospital for further intervention. It was concerns to pulmonary abscess and tuberculosis the infectious diseases consultation was requested. The patient relates that he continues to have some cough especially in the morning productive of a large amount of material. However he has no hemoptysis. His appetite has been somewhat off and is lost a bit of weight and is very quite thin. As noted he's had no significant chills or night sweats but did have some fevers. Patient has now been seen by pulmonary critical care. Bronchoscopy has now occurred. He is much more calm this evening after the procedure. At the present time will have samples for acid-fast bacilli, fungus , routine bacterial cultures, viral panel and cytology. He is aware that once we have acid-fast bacilli stains back, if they are negative then he likely would've discharged home to complete a course of oral antibiotic therapy. He is much more calm and less anxious today. He has noted he is now much less short of breath his cough is improved. Post- bronchoscopy as he had a bit of hemoptysis which is improved already this evening. He had transient epistaxis it is very resolved. Feeling considerably better this evening. 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 Dentition somewhat warm for age there is no evidence of any further epistaxis. There is no evidence of any blood in the oral cavity. There is no facial swelling. No tenderness over the frontal or maxillary sinuses at this time. Neck: The neck is supple without significant lymphadenopathy or thyromegaly. Trachea is midline without tenderness. Lungs: Good bilateral air entry there are scattered expiratory wheezes. Improved minimally with cough. There is evidence of the right posterior upper zone with amphoric sounds, no significant dullness was noted. Few crackles at the bases are noted. Heart: Regular rate and rhythm with an audible S1-S2, no S3 no S4. There is no significant murmur click or rub, PMI was nondisplaced. Abdomen: Positive bowel sounds soft and nontender without palpable masses or organomegaly. There was no guarding or rebound. Extremities: The upper extremities have excellent pulses they are symmetric, no significant petechiae or telangiectasia. No splinter hemorrhages were noted. The lower extremities are free from significant edema. The peripheral pulses were 2+ and symmetric. Neuro: Awake alert oriented to person place and time. There are no acute new gross focal sensory motor deficits. - Labs CBC & Chem 7: 01/20/17 07:58 01/20/17 07:58 Labs: Abnormal Lab Results - Last 24 Hours (Table) 01/19/17 01/20/17 Range/Units 09:15 07:58 Plt Count 605 H (150-450) k/uL Prealbumin 10.0 L (18.0-42.0) mg/dL Microbiology - Last 24 Hours (Table) 01/18/17 12:50 Blood Culture - Preliminary Blood No Growth after 48 hours 01/18/17 12:35 Blood Culture - Preliminary Blood No Growth after 48 hours Laboratory Results WBC 8.5 k/uL (3.8-10.6) 01/20/17 07:58 RBC 4.94 m/uL (4.30-5.90) 01/20/17 07:58 Hgb 15.7 gm/dL (13.0-17.5) 01/20/17 07:58 Hct 46.6 % (39.0-53.0) 01/20/17 07:58 MCV 94.2 fL (80.0-100.0) 01/20/17 07:58 MCH 31.7 pg (25.0-35.0) 01/20/17 07:58 MCHC 33.6 g/dL (31.0-37.0) 01/20/17 07:58 RDW 12.0 % (11.5-15.5) 01/20/17 07:58 Plt Count 605 k/uL (150-450) H 01/20/17 07:58 Neutrophils % 67 % 01/20/17 07:58 Lymphocytes % 21 % 01/20/17 07:58 Monocytes % 7 % 01/20/17 07:58 Eosinophils % 3 % 01/20/17 07:58 Basophils % 1 % 01/20/17 07:58 Neutrophils # 5.6 k/uL (1.3-7.7) 01/20/17 07:58 Lymphocytes # 1.8 k/uL (1.0-4.8) 01/20/17 07:58 Monocytes # 0.6 k/uL (0-1.0) 01/20/17 07:58 Eosinophils # 0.2 k/uL (0-0.7) 01/20/17 07:58 Basophils # 0.1 k/uL (0-0.2) 01/20/17 07:58 Manual Slide Review Performed 01/18/17 18:08 Toxic Granulation Present 01/18/17 18:08 ESR 26 mm/hr (0-15) H 01/18/17 18:08 Sodium 137 mmol/L (137-145) 01/20/17 07:58 Potassium 4.9 mmol/L (3.5-5.1) 01/20/17 07:58 Chloride 102 mmol/L (98-107) 01/20/17 07:58 Carbon Dioxide 26 mmol/L (22-30) 01/20/17 07:58 Anion Gap 9 mmol/L 01/20/17 07:58 BUN 12 mg/dL (9-20) 01/20/17 07:58 Creatinine 0.98 mg/dL (0.66-1.25) 01/20/17 07:58 Est GFR (MDRD) Af Amer >60 (>60 ml/min/1.73 sqM) 01/20/17 07:58 Est GFR (MDRD) Non-Af >60 (>60 ml/min/1.73 sqM) 01/20/17 07:58 Glucose 85 mg/dL (74-99) 01/20/17 07:58 Calcium 9.5 mg/dL (8.4-10.2) 01/20/17 07:58 Total Bilirubin 0.5 mg/dL (0.2-1.3) 01/18/17 18:08 AST 16 U/L (17-59) L 01/18/17 18:08 ALT 27 U/L (21-72) 01/18/17 18:08 Alkaline Phosphatase 64 U/L (38-126) 01/18/17 18:08 Total Protein 6.7 g/dL (6.3-8.2) 01/18/17 18:08 Albumin 3.5 g/dL (3.5-5.0) 01/18/17 18:08 Prealbumin 10.0 mg/dL (18.0-42.0) L 01/19/17 09:15 [id number] 236.0 mg/dL (99.0-242.0) 01/18/17 18:08 Fluid Source Bronchial Wash 01/20/17 12:00 Fluid Color Red 01/20/17 12:00 Fluid Appearance Blood Tinged 01/20/17 12:00 Fluid RBC 23616 /uL 01/20/17 12:00 Fluid Nucleated Cells 1283 /uL 01/20/17 12:00 Urine Legionella Ag Not detected (Not detected) 01/18/17 17:13 Microbiology 01/18/17 12:50 Blood Blood Culture - Preliminary No Growth after 48 hours 01/18/17 12:35 Blood Blood Culture - Preliminary No Growth after 48 hours The multiple specimens have been sent to the laboratory for acid fast, fungus, routine bacterial, anaerobic, viral and of course the stat AFB smear to determine if he can be released from isolation Assessment and Plan (1) Cavitary pneumonia Narrative/Plan: 36-year-old male presents to the hospital with instructions physician because of difficulties by his chest x-ray. Patient has a two-week history of significant illness. First associated with fevers chills cough and sputum production. Continues to have some morning sputum production. The high-grade fevers and chills have improved. He's had some mild weight loss. He is noted to have outpatient workup that included a PPD to his right arm that has been read as negative. Imaging studies of noted show evidence of the cavitary lesion in the right upper lobe. Somewhat thick wall. Indicating potential lack of acuity to this process. He has been seen by pulmonology. There are plans for bronchoscopy tomorrow for further evaluation of this significant cavitary lesion. If bronchoscopy AFB comes back negative his AFB isolation may then be discontinued. In the meantime sputum AFBs have been requested. TB seems to be quite unlikely. With his history of smoking and what appears to be significant alcohol use the possibility of lung abscess and potentially an infected bleb. Antimicrobial therapy with Zosyn and Levaquin are being utilized for now. No history of MRSA infection. We'll continue ongoing supportive care. Respiratory treatments are being given. Pain control is not an issue at this time Fever will be controlled. Sputum and blood cultures are in process and are negative so far Smoking cessation and anxiety have been supported We discussed his smoking cessation further today. He has not been hospital for multiple days. He is on his way to becoming a nonsmoker. We would like to support him in his endeavor to become a nonsmoker with further smoking cessation aids after his discharge. Multivitamin is being utilized. Patient's advised a high protein intake. Bronchoscopy has occurred. The stat AFB smear is pending. Pulses become available, as I suspect it will be negative. We'll be released from isolation and likely discharged home to complete a course of oral antimicrobial therapy. If possible moxifloxacin 400 mg orally each day for 10 days should be utilized for this complex right upper lobe cavitary lung abscess. He'll need to follow in the office for both pulmonary and infectious disease at discharge. Status: Acute (2) Fever Status: Acute (3) Leukocytosis Status: Acute (4) Smoker Status: Acute (5) Alcohol use Status: Acute
--- NOTE | 2017-01-20 20:46 | PCN ---
PROCEDURE NOTE PROCEDURE: A bronchoscopy, airway examination, therapeutic lavage, BAL right upper lobe brushings, right upper lobe transbronchial biopsies. PREOP DIAGNOSIS: Cavitary lesion right upper lobe. POSTOP DIAGNOSIS: Cavitary lesion right upper lobe. ANESTHESIA: General anesthesia provided by the [employer] and the anesthesiologist. DESCRIPTION OF PROCEDURE: After the patient was adequately sedated and being fully monitored. The bronchoscope was inserted through the right nostril. Passed through the right nasopharynx into the oropharynx. Hypopharynx was identified and topicalized. Hypopharyngeal structures including anterior commissure, true cords, false cords, arytenoid, piriform sinuses, right and left vallecula all appeared normal. After topical topicalization, bronchoscope was pushed through the glottic opening into the trachea. Trachea appeared normal. We did a quick thorough evaluation of the lungs. Left upper lobe and its two segments, the lingula and its two segments, left lower lobe and its four segments, right upper lobe and its three segment, right middle lobe and its two segments and in the right lower lobe and its five segments all appeared relatively normal. There is no dominant mass or lesion. Next, under fluoroscopic guidance, the bronchoscope was positioned into the right upper lobe posterior segment. Brushings were performed times two. Next, under fluoroscopic guidance multiple transbronchial biopsies performed in the right upper lobe. Finally, washings were done in the right upper lobe. The patient tolerated procedure well. There was no significant bleeding. After we assured hemostasis, the bronchoscope was withdrawn. We quickly looked under fluoro to see if there was a pneumothorax. There was none. The bronchoscope was withdrawn. The patient will be recovered. Formal chest x-ray was ordered. MMODL / IJN: [id number] /
[2017-01-20] MEDS: ENOXAPARIN 40 MG/0.4 ML SYRINGE SQ SCH (22:13)
[2017-01-21] MEDS: PIPERACILLIN-TAZOBACTAM 3.375 GM in DEXTROSE/WATER 1 50ML.BAG IVPB SCH ×4 (00:23→23:59)
[2017-01-21] MEDS: NICOTINE 21MG/24HR PATCH TRANSDERM SCH (08:11)
[2017-01-21] MEDS: LORazepam 0.5 MG TAB PO SCH ×3 (08:11→21:04)
[2017-01-21 08:24] LABS: Basophils # (A) 0.1 k/uL (0-0.2); Basophils % (A) 1 %; CH 30.9; CHCM 33.2; Eosinophils # (A) 0.3 k/uL (0-0.7); Eosinophils % (A) 3 %; HCT 46.5 % (39.0-53.0); HDW 2.53; HGB 15.6 gm/dL (13.0-17.5); Luc # (Auto) 0.15; Luc % (Auto) 2; Lymphocytes # (A) 2.2 k/uL (1.0-4.8); Lymphocytes % (A) 26 %; MCH 31.3 pg (25.0-35.0); MCHC 33.5 g/dL (31.0-37.0); MCV 93.5 fL (80.0-100.0); Monocytes # (A) 0.6 k/uL (0-1.0); Monocytes % (A) 7 %; Neutrophils # (A) 4.9 k/uL (1.3-7.7); Neutrophils % (A) 60 %; RBC 4.97 m/uL (4.30-5.90); RDW 12.1 % (11.5-15.5); WBC 8.2 k/uL (3.8-10.6); WBC (Perox) 8.12
[2017-01-21 08:40] LABS: Anion Gap 13 mmol/L; Blood Urea Nitrogen 11 mg/dL (9-20); Calcium 9.7 mg/dL (8.4-10.2); Carbon Dioxide 23 mmol/L (22-30); Chloride 103 mmol/L (98-107); Glucose 91 mg/dL (74-99); Non-African American GFR(MDRD) >60 (>60 ml/min/1.73 sqM); Potassium 4.8 mmol/L (3.5-5.1); Sodium 139 mmol/L (137-145)
--- NOTE | 2017-01-21 11:02 | P.PN ---
Subjective Progress note dated 01/20/2017 This is a 36-year-old male who was seen by my partner in the clinic 2 days ago. His primary physician is Dr. Renae Torrez. He apparently developed a bronchitis/upper respiratory like illness. Treated with antibiotics without much improvement. Chest x-ray and CAT scan showed a cavitary lesion in the right upper lobe. The patient was placed on Levaquin and Zosyn per infectious disease. Today we'll do a bronchoscopy airway examination therapy lavage and BAL and also plan on doing brushes and biopsies of the right upper lobe lesion. On lateral chest x-ray looks like it might be the posterior segment of the right upper lobe. The patient otherwise is doing reasonably well. I do not believe this is likely tuberculosis but certainly has a concern. The dose the patient does smoke cigarettes and does drink 8 beers a day. I suspect this is related to aspiration anaerobic lung abscess. Progress note dated 01/21/2017 36-year-old white male with a abnormal chest x-ray showing a thick wall cavitary lesion right upper lobe he was seen initially by my partner. His primary physician is Dr. Renae Bailey. The patient underwent bronchoscopy brushes washings and transbronchial biopsies of the right upper lobe lesion. Results are currently pending. I suspect the patient probably has a anaerobic lung abscess involving the right upper lobe probably secondary to aspiration of oropharyngeal contents. The patient seemed be doing relatively well. His TB skin test was negative. AFB smears pending. He is clinically doing well and the thickness of the cavity has decreased in size. We'll allow Dr. Martinez the infectious disease doctor to decide on discharge antibiotics. Objective - Vital Signs Vital signs: Vital Signs Temp 98.4 F 01/21/17 07:00 Pulse 71 01/21/17 07:00 Resp 16 01/21/17 07:00 BP 98/50 01/21/17 07:00 Pulse Ox 98 01/21/17 07:00 Intake & Output 01/20/17 01/21/17 01/21/17 18:59 06:59 18:59 Intake Total 300 1050 Balance 300 1050 Intake: IV 300 Intake, IV Titration 1050 Amount Piperacillin-Tazobactam 3 50 .375 gm In Dextrose/Water 1 50ml.bag @ 12.5 mls/hr IVPB Q8HR [facility] Rx#: [id number] Sodium Chloride 0.9% 1, 1000 000 ml @ 20 mls/hr IV . Q24H [facility] Rx#:[id number] Other: Voiding Method Toilet # Voids 2 1 # Bowel Movements 0 - Exam No acute distress, oriented 3. HEENT examination reveals it to be relatively normal. Mucous membranes are moist. No oral lesions. Neck supple. Full range of motion. No adenopathy or thyromegaly. Neck veins are flat. Cardiovascular examination reveals regular rhythm rate. S1-S2 normal. Lungs reveal few scattered rhonchi. No wheezes or crackles. Breath sounds are equal but slightly diminished. Abdomen soft bowel sounds are heard. Extremities are intact. No cyanosis clubbing or edema. Skin without rash. Neurologic examination is nonfocal. - Labs CBC & Chem 7: 01/21/17 08:00 01/21/17 08:00 Labs: Abnormal Lab Results - Last 24 Hours (Table) 01/21/17 Range/Units 08:00 Plt Count 692 H (150-450) k/uL Microbiology - Last 24 Hours (Table) 01/20/17 12:00 Gram Stain - Preliminary Bronchial Washings - Right Bronchial Washings Culture - Preliminary 01/20/17 12:00 Fungal Culture - Preliminary Bronchial Washings - Right 01/20/17 12:00 Acid Fast Bacilli Culture - Preliminary Bronchial Washings - Right 01/18/17 12:50 Blood Culture - Preliminary Blood No Growth after 48 hours 01/18/17 12:35 Blood Culture - Preliminary Blood No Growth after 48 hours Assessment and Plan (1) Lung abscess Status: Acute (2) Alcohol use Status: Acute (3) Cavitary pneumonia Status: Acute (4) Fever Status: Acute (5) Leukocytosis Status: Acute (6) Smoker Status: Acute (7) GERD (gastroesophageal reflux disease) Status: Acute Plan: Plan dated 01/20/2017 The patient will undergo bronchoscopy today. The patient will have washes brushes and biopsies of the right upper lobe lesion. Additional recommendations and suggestions are forthcoming. Prognosis is guarded. Continue on antibiotics. We'll follow. Plan dated 01/21/2017 The patient seemed be doing clinically well. He tolerated the procedure yesterday very well. His PPD skin test was negative. AFB smears are pending from the bronchial wash. The patient likely has anaerobic lung abscess. I suspect he likely aspirated. I will allow Dr. Martinez infectious disease specialist to decide on discharge antibiotics when he thinks is appropriate. From the pulmonary standpoint doing very well. I seriously doubt that he has tuberculosis. Time with Patient: Less than 30
[2017-01-21] MEDS: LEVOFLOXACIN 750MG-D5W PMX 750 MG in DEXTROSE/WATER 1 150ML.BAG IVPB SCH (12:09)
[2017-01-21] MEDS: MULTIVITAMINS, THERA 1 EACH TAB PO SCH (12:10)
[2017-01-21] MEDS: SODIUM CHLORIDE 0.9% 1,000 ML IV SCH (13:53)
[2017-01-21] MEDS: ENOXAPARIN 40 MG/0.4 ML SYRINGE SQ SCH (21:10)
--- NOTE | 2017-01-21 22:54 | P.PN ---
Subjective Principal diagnosis: Pneumonia Pleasant 36-year-old male presents to Hospital the direction of his physician because of difficulties with pneumonia. The patient relates that more than 2 weeks ago he became acutely ill. At the present time he was having cough some pleuritic discomfort in his chest associated with significant sputum production and fevers. He was having fevers and chills without rigors. He has significant malaise he did not feel well. He continued to work because his boss was out of town. However recently he was feeling much more poorly and took a day off of work. He then sought medical attention. Outpatient chest x- ray was performed that was abnormal. He was then referred to pulmonary. At the office chest x-ray was performed that was abnormal and computed tomography scan was requested. With a very abnormal computed tomography scan the patient was directly admitted to hospital for further intervention. It was concerns to pulmonary abscess and tuberculosis the infectious diseases consultation was requested. The patient relates that he continues to have some cough especially in the morning productive of a large amount of material. However he has no hemoptysis. His appetite has been somewhat off and is lost a bit of weight and is very quite thin. As noted he's had no significant chills or night sweats but did have some fevers. Patient has now been seen by pulmonary critical care. Bronchoscopy has now occurred. He is much more calm this evening after the procedure. At the present time will have samples for acid-fast bacilli, fungus , routine bacterial cultures, viral panel and cytology. He is aware that once we have acid-fast bacilli stains back, if they are negative then will discharged home to complete a course of oral antibiotic therapy. He is much more calm and less anxious today. He has noted he is now much less short of breath his cough is improved. Post- bronchoscopy as he had a bit of hemoptysis which is improved already this evening. He had transient epistaxis it is very resolved. Feeling better overall. Objective - Vital Signs Vital signs: Vital Signs Temp 98.6 F 01/21/17 15:00 Pulse 74 01/21/17 15:00 Resp 16 01/21/17 15:00 BP 100/54 01/21/17 15:00 Pulse Ox 98 01/21/17 15:00 Intake & Output 01/21/17 01/21/17 01/22/17 06:59 18:59 06:59 Intake Total 1050 Balance 1050 Weight 55.338 kg Intake: Intake, IV Titration 1050 Amount Piperacillin-Tazobactam 3 50 .375 gm In Dextrose/Water 1 50ml.bag @ 12.5 mls/hr IVPB Q8HR [facility] Rx#: [id number] Sodium Chloride 0.9% 1, 1000 000 ml @ 20 mls/hr IV . 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 Dentition somewhat warm for age there is no evidence of any further epistaxis. There is no evidence of any blood in the oral cavity. There is no facial swelling. No tenderness over the frontal or maxillary sinuses at this time. Neck: The neck is supple without significant lymphadenopathy or thyromegaly. Trachea is midline without tenderness. Lungs: Good bilateral air entry there are scattered expiratory wheezes. Improved minimally with cough. There is evidence of the right posterior upper zone with amphoric sounds, no significant dullness was noted. Few crackles at the bases are noted. Heart: Regular rate and rhythm with an audible S1-S2, no S3 no S4. There is no significant murmur click or rub, PMI was nondisplaced. Abdomen: Positive bowel sounds soft and nontender without palpable masses or organomegaly. There was no guarding or rebound. Extremities: The upper extremities have excellent pulses they are symmetric, no significant petechiae or telangiectasia. No splinter hemorrhages were noted. The lower extremities are free from significant edema. The peripheral pulses were 2+ and symmetric. Neuro: Awake alert oriented to person place and time. There are no acute new gross focal sensory motor deficits. - Labs CBC & Chem 7: 01/21/17 08:00 01/21/17 08:00 Labs: Abnormal Lab Results - Last 24 Hours (Table) 01/21/17 Range/Units 08:00 Plt Count 692 H (150-450) k/uL Microbiology - Last 24 Hours (Table) 01/20/17 12:00 Acid Fast Bacilli Smear - Final Bronchial Washings - Right Acid Fast Bacilli Culture - Preliminary 01/18/17 12:50 Blood Culture - Preliminary Blood No Growth after 72 hours 01/18/17 12:35 Blood Culture - Preliminary Blood No Growth after 72 hours 01/20/17 12:00 Gram Stain - Preliminary Bronchial Washings - Right Bronchial Washings Culture - Preliminary 01/20/17 12:00 Fungal Culture - Preliminary Bronchial Washings - Right Laboratory Results WBC 8.2 k/uL (3.8-10.6) 01/21/17 08:00 RBC 4.97 m/uL (4.30-5.90) 01/21/17 08:00 Hgb 15.6 gm/dL (13.0-17.5) 01/21/17 08:00 Hct 46.5 % (39.0-53.0) 01/21/17 08:00 MCV 93.5 fL (80.0-100.0) 01/21/17 08:00 MCH 31.3 pg (25.0-35.0) 01/21/17 08:00 MCHC 33.5 g/dL (31.0-37.0) 01/21/17 08:00 RDW 12.1 % (11.5-15.5) 01/21/17 08:00 Plt Count 692 k/uL (150-450) H 01/21/17 08:00 Neutrophils % 60 % 01/21/17 08:00 Lymphocytes % 26 % 01/21/17 08:00 Monocytes % 7 % 01/21/17 08:00 Eosinophils % 3 % 01/21/17 08:00 Basophils % 1 % 01/21/17 08:00 Neutrophils # 4.9 k/uL (1.3-7.7) 01/21/17 08:00 Lymphocytes # 2.2 k/uL (1.0-4.8) 01/21/17 08:00 Monocytes # 0.6 k/uL (0-1.0) 01/21/17 08:00 Eosinophils # 0.3 k/uL (0-0.7) 01/21/17 08:00 Basophils # 0.1 k/uL (0-0.2) 01/21/17 08:00 Manual Slide Review Performed 01/18/17 18:08 Toxic Granulation Present 01/18/17 18:08 ESR 26 mm/hr (0-15) H 01/18/17 18:08 Sodium 139 mmol/L (137-145) 01/21/17 08:00 Potassium 4.8 mmol/L (3.5-5.1) 01/21/17 08:00 Chloride 103 mmol/L (98-107) 01/21/17 08:00 Carbon Dioxide 23 mmol/L (22-30) 01/21/17 08:00 Anion Gap 13 mmol/L 01/21/17 08:00 BUN 11 mg/dL (9-20) 01/21/17 08:00 Creatinine 0.95 mg/dL (0.66-1.25) 01/21/17 08:00 Est GFR (MDRD) Af Amer >60 (>60 ml/min/1.73 sqM) 01/21/17 08:00 Est GFR (MDRD) Non-Af >60 (>60 ml/min/1.73 sqM) 01/21/17 08:00 Glucose 91 mg/dL (74-99) 01/21/17 08:00 Calcium 9.7 mg/dL (8.4-10.2) 01/21/17 08:00 Total Bilirubin 0.5 mg/dL (0.2-1.3) 01/18/17 18:08 AST 16 U/L (17-59) L 01/18/17 18:08 ALT 27 U/L (21-72) 01/18/17 18:08 Alkaline Phosphatase 64 U/L (38-126) 01/18/17 18:08 Total Protein 6.7 g/dL (6.3-8.2) 01/18/17 18:08 Albumin 3.5 g/dL (3.5-5.0) 01/18/17 18:08 Prealbumin 10.0 mg/dL (18.0-42.0) L 01/19/17 09:15 [id number] 236.0 mg/dL (99.0-242.0) 01/18/17 18:08 Fluid Source Bronchial Wash 01/20/17 12:00 Fluid Color Red 01/20/17 12:00 Fluid Appearance Blood Tinged 01/20/17 12:00 Fluid RBC 62451 /uL 01/20/17 12:00 Fluid Nucleated Cells 1283 /uL 01/20/17 12:00 Fluid Polynuclear WBCs 18 % 01/20/17 12:00 Fluid Mononuclear WBCs 82 % 01/20/17 12:00 Urine Legionella Ag Not detected (Not detected) 01/18/17 17:13 Microbiology 01/20/17 12:00 Bronchial Washings - Right Acid Fast Bacilli Smear - Final 01/20/17 12:00 Bronchial Washings - Right Acid Fast Bacilli Culture - Preliminary 01/18/17 12:50 Blood Blood Culture - Preliminary No Growth after 72 hours 01/18/17 12:35 Blood Blood Culture - Preliminary No Growth after 72 hours 01/20/17 12:00 Bronchial Washings - Right Gram Stain - Preliminary 01/20/17 12:00 Bronchial Washings - Right Bronchial Washings Culture - Preliminary 01/20/17 12:00 Bronchial Washings - Right Fungal Culture - Preliminary Assessment and Plan (1) Cavitary pneumonia Narrative/Plan: 36-year-old male presents to the hospital with instructions physician because of difficulties by his chest x-ray. Patient has a two-week history of significant illness. First associated with fevers chills cough and sputum production. Continues to have some morning sputum production. The high-grade fevers and chills have improved. He's had some mild weight loss. He is noted to have outpatient workup that included a PPD to his right arm that has been read as negative. Imaging studies of noted show evidence of the cavitary lesion in the right upper lobe. Somewhat thick wall. Indicating potential lack of acuity to this process. He has been seen by pulmonology. There are plans for bronchoscopy tomorrow for further evaluation of this significant cavitary lesion. If bronchoscopy AFB comes back negative his AFB isolation may then be discontinued. In the meantime sputum AFBs have been requested. TB seems to be quite unlikely. With his history of smoking and what appears to be significant alcohol use the possibility of lung abscess and potentially an infected bleb. Antimicrobial therapy with Zosyn and Levaquin are being utilized for now. No history of MRSA infection. We'll continue ongoing supportive care. Respiratory treatments are being given. Pain control is not an issue at this time Fever will be controlled. Sputum and blood cultures are in process and are negative so far Smoking cessation and anxiety have been supported We discussed his smoking cessation further today. He has not been hospital for multiple days. He is on his way to becoming a nonsmoker. We would like to support him in his endeavor to become a nonsmoker with further smoking cessation aids after his discharge. Multivitamin is being utilized. Patient's advised a high protein intake. Bronchoscopy has occurred. The stat AFB smear is pending at the time of the evaluation. Once available and is confirmed negative will be released from isolation and discharged home to complete a course of oral antimicrobial therapy. If possible moxifloxacin 400 mg orally each day for 10 days should be utilized for this complex right upper lobe cavitary lung abscess. He'll need to follow in the office for both pulmonary and infectious disease at discharge. Status: Acute (2) Fever Status: Acute (3) Leukocytosis Status: Acute (4) Smoker Status: Acute (5) Alcohol use Status: Acute
--- NOTE | 2017-01-21 23:29 | P.PN ---
Subjective Principal diagnosis: Right upper lobe cavitary lesion Patient is a 36-year-old male with a known history of alcohol abuse was admitted to the hospital with chest x-ray findings of persistent right upper lobe cavitary lesion and 2 week history of cough with sputum production and generalized weakness. Patient was suspected with possible lung abscess and also suspicious for tuberculosis. Patient is unlikely. Patient underwent bronchoscopy and bronchoalveolar lavage was sent for AFB which is negative as per preliminary report. Patient is currently on antibiotics in the form of Levaquin and Zosyn as per ID recommendations. Today patient denied any complaints of chest pain or short of breath. No fever no chills. BAL fluid cultures are still pending. ID and pulmonary is following this patient. Otherwise no chest pain no short of breath. No nausea or no vomiting. No abdominal pain. No acute overnight issues. Objective - Vital Signs Vital signs: Vital Signs Temp 98.6 F 01/21/17 15:00 Pulse 74 01/21/17 15:00 Resp 16 01/21/17 15:00 BP 100/54 01/21/17 15:00 Pulse Ox 98 01/21/17 15:00 Intake & Output 01/21/17 01/21/17 01/22/17 06:59 18:59 06:59 Intake Total 1050 Balance 1050 Weight 55.338 kg Intake: Intake, IV Titration 1050 Amount Piperacillin-Tazobactam 3 50 .375 gm In Dextrose/Water 1 50ml.bag @ 12.5 mls/hr IVPB Q8HR [facility] Rx#: [id number] Sodium Chloride 0.9% 1, 1000 000 ml @ 20 mls/hr IV . Q24H [facility] Rx#:[id number] Other: Voiding Method Toilet Toilet # Voids 1 2 - Exam PHYSICAL EXAMINATION: Patient is lying in the bed comfortably, no acute distress, awake alert and oriented.. HEENT: Normocephalic. Neck is supple. Pupils reactive. Nostrils clear. Oral cavity is moist. Ears reveal no drainage. Neck reveals no JVD, carotid bruits, or thyromegaly. CHEST EXAMINATION: Trachea is central. Symmetrical expansion. Lung chen clear to auscultation and percussion. CARDIAC: Normal S1, S2 with no gallops. No murmurs ABDOMEN: Soft. Bowel sounds normal. No organomegaly. No abdominal bruits. Extremities reveal no edema. No clubbing or cyanosis Neurologically awake, alert, oriented x3 with well-coordinated movements. Skin: no rash or skin lesions Musculoskeletal: no joint swelling or deformity. - Labs CBC & Chem 7: 01/21/17 08:00 01/21/17 08:00 Labs: Abnormal Lab Results - Last 24 Hours (Table) 01/21/17 Range/Units 08:00 Plt Count 692 H (150-450) k/uL Microbiology - Last 24 Hours (Table) 01/20/17 12:00 Acid Fast Bacilli Smear - Final Bronchial Washings - Right Acid Fast Bacilli Culture - Preliminary 01/18/17 12:50 Blood Culture - Preliminary Blood No Growth after 72 hours 01/18/17 12:35 Blood Culture - Preliminary Blood No Growth after 72 hours 01/20/17 12:00 Gram Stain - Preliminary Bronchial Washings - Right Bronchial Washings Culture - Preliminary 01/20/17 12:00 Fungal Culture - Preliminary Bronchial Washings - Right Assessment and Plan Plan: #1 persistent right upper lobe cavitary lesion possible lung abscess. Rule out tuberculosis. Status post bronchoscopy #2 significant alcohol abuse/dependence #3 nicotine addiction #4 anxiety Plan: Patient will be continued on antibiotics and follow-up culture report and final AFB stain report. ID and pulmonary is following this patient. Once tuberculosis is ruled out, patient can be discharged home on moxifloxacin for a total of 10 days. Patient is improving symptomatically. Time with Patient: Greater than 30
[2017-01-22 07:34] VITALS: BP 108/71; PULSE 67; RESP 16; TEMP 96.8
[2017-01-22] MEDS: NICOTINE 21MG/24HR PATCH TRANSDERM SCH (07:56)
[2017-01-22] MEDS: PIPERACILLIN-TAZOBACTAM 3.375 GM in DEXTROSE/WATER 1 50ML.BAG IVPB SCH (07:56)
[2017-01-22] MEDS: LORazepam 0.5 MG TAB PO SCH (07:56)
--- NOTE | 2017-01-22 11:01 | P.PN ---
Subjective Progress note dated 01/20/2017 This is a 36-year-old male who was seen by my partner in the clinic 2 days ago. His primary physician is Dr. Renae Torrez. He apparently developed a bronchitis/upper respiratory like illness. Treated with antibiotics without much improvement. Chest x-ray and CAT scan showed a cavitary lesion in the right upper lobe. The patient was placed on Levaquin and Zosyn per infectious disease. Today we'll do a bronchoscopy airway examination therapy lavage and BAL and also plan on doing brushes and biopsies of the right upper lobe lesion. On lateral chest x-ray looks like it might be the posterior segment of the right upper lobe. The patient otherwise is doing reasonably well. I do not believe this is likely tuberculosis but certainly has a concern. The dose the patient does smoke cigarettes and does drink 8 beers a day. I suspect this is related to aspiration anaerobic lung abscess. Progress note dated 01/21/2017 36-year-old white male with a abnormal chest x-ray showing a thick wall cavitary lesion right upper lobe he was seen initially by my partner. His primary physician is Dr. Renae Bailey. The patient underwent bronchoscopy brushes washings and transbronchial biopsies of the right upper lobe lesion. Results are currently pending. I suspect the patient probably has a anaerobic lung abscess involving the right upper lobe probably secondary to aspiration of oropharyngeal contents. The patient seemed be doing relatively well. His TB skin test was negative. AFB smears pending. He is clinically doing well and the thickness of the cavity has decreased in size. We'll allow Dr. Martinez the infectious disease doctor to decide on discharge antibiotics. Progress note dated 01/22/2017 36-year-old white male with a thick wall cavity in the right upper lobe. He underwent bronchoscopy BAL brushes and transbronchial biopsies. Results are pending or negative. Dr. Martinez, the infectious disease doctor wants to send him home on moxifloxacin 400 mg for 10 days. We made an appointment for him to see my partner in the office with a follow-up chest x-ray. He may need longer treatment if this in fact is a anaerobic lung abscess. We doubt that his tuberculosis. Clinically he is doing well. Feels better. No fever no chills. Coughing a bit. Not producing much or any phlegm. No nausea vomiting or diarrhea. Objective - Vital Signs Vital signs: Vital Signs Temp 96.8 F L 01/22/17 07:00 Pulse 67 01/22/17 07:00 Resp 16 01/22/17 08:00 BP 108/71 01/22/17 07:00 Pulse Ox 99 01/22/17 07:00 Intake & Output 01/21/17 01/22/17 01/22/17 18:59 06:59 18:59 Weight 55.338 kg Other: Voiding Method Toilet # Voids 2 1 1 - Exam No acute distress, oriented 3. HEENT examination reveals it to be relatively normal. Mucous membranes are moist. No oral lesions. Neck supple. Full range of motion. No adenopathy or thyromegaly. Neck veins are flat. Cardiovascular examination reveals regular rhythm rate. S1-S2 normal. Lungs reveal few scattered rhonchi. No wheezes or crackles. Breath sounds are equal but slightly diminished. Abdomen soft bowel sounds are heard. Extremities are intact. No cyanosis clubbing or edema. Skin without rash. Neurologic examination is nonfocal. - Labs CBC & Chem 7: 01/21/17 08:00 01/21/17 08:00 Labs: Microbiology - Last 24 Hours (Table) 01/20/17 12:00 Acid Fast Bacilli Smear - Final Bronchial Washings - Right Acid Fast Bacilli Culture - Preliminary 01/18/17 12:50 Blood Culture - Preliminary Blood No Growth after 72 hours 01/18/17 12:35 Blood Culture - Preliminary Blood No Growth after 72 hours Assessment and Plan (1) Lung abscess Status: Acute (2) Alcohol use Status: Acute (3) Cavitary pneumonia Status: Acute (4) Fever Status: Acute (5) Leukocytosis Status: Acute (6) Smoker Status: Acute (7) GERD (gastroesophageal reflux disease) Status: Acute Plan: Plan dated 01/20/2017 The patient will undergo bronchoscopy today. The patient will have washes brushes and biopsies of the right upper lobe lesion. Additional recommendations and suggestions are forthcoming. Prognosis is guarded. Continue on antibiotics. We'll follow. Plan dated 01/21/2017 The patient seemed be doing clinically well. He tolerated the procedure yesterday very well. His PPD skin test was negative. AFB smears are pending from the bronchial wash. The patient likely has anaerobic lung abscess. I suspect he likely aspirated. I will allow Dr. Martinez infectious disease specialist to decide on discharge antibiotics when he thinks is appropriate. From the pulmonary standpoint doing very well. I seriously doubt that he has tuberculosis. Plan dated 01/22/2017 The patient may be discharged home today. We'll leave that up to the primary service and Dr. Martinez. Dr. Martinez mentioned in his note that he was can be discharged home on moxifloxacin, a fluoroscopy quinolone, at 400 mg a day. This was Avelox. He'll follow with my partner in the office. A chest x-ray will be done. He may need longer treatment.. The patient's results and biopsies were brushes washes are still pending or negative. AFB smear was negative. Skin test i.e. PPD was negative. We doubted that he had tuberculosis. We'll continue to follow closely. We believe the diagnosis is anaerobic lung abscess probably secondary to aspiration. Time with Patient: Less than 30
[2017-01-22] MEDS: MULTIVITAMINS, THERA 1 EACH TAB PO SCH (11:15)
[2017-01-22] MEDS ORDERED: LEVOFLOXACIN 750 MG TAB PO SCH (13:00)
== END 2017-01-22 11:16 | disposition home or self-care (01) | DRG 166 ==
LOC: 4MS4W 10:27
PROVIDERS: ADMIT Hospitalist; ATTEND Hospitalist
PROC: 0B9C8ZX Drainage of Right Upper Lung Lobe, Via Natural or Artificial Opening Endoscopic, Diagnostic (ICD-10-PCS; principal; 2017-01-20 07:30)
PROC: 0BBC8ZX Excision of Right Upper Lung Lobe, Via Natural or Artificial Opening Endoscopic, Diagnostic (ICD-10-PCS; 2017-01-20 07:30)
PROC: 0BBC8ZX Excision of Right Upper Lung Lobe, Via Natural or Artificial Opening Endoscopic, Diagnostic (ICD-10-PCS; 2017-01-20 07:30)
DX: J85.2 Abscess of lung without pneumonia (principal); J69.0 Pneumonitis due to inhalation of food and vomit; R04.2 Hemoptysis; K21.9 Gastro-esophageal reflux disease without esophagitis; R53.1 Weakness; D75.89 Other specified diseases of blood and blood-forming organs; F10.20 Alcohol dependence, uncomplicated; D72.829 Elevated white blood cell count, unspecified; R63.4 Abnormal weight loss; R04.0 Epistaxis; R50.9 Fever, unspecified; F12.90 Cannabis use, unspecified, uncomplicated; F41.8 Other specified anxiety disorders; F17.210 Nicotine dependence, cigarettes, uncomplicated; Z79.899 Other long term (current) drug therapy; Z82.49 Family history of ischemic heart disease and other diseases of the circulatory system; Z88.5 Allergy status to narcotic agent; Z86.19 Personal history of other infectious and parasitic diseases; Z87.09 Personal history of other diseases of the respiratory system; Z83.6 Family history of other diseases of the respiratory system; Z71.6 Tobacco abuse counseling; Z71.3 Dietary counseling and surveillance
CPT/HCPCS: 31623; 31624; 31628; 71010; 71020; 80048; 80053; 82103; 84134; 85025; 85652; 87040; 87070; 87102; 87116; 87205; 87206; 87252; 87449; 87496; 87498; 87502; 87529; 87798; 88104; 88108; 88305; 89050

== ENCOUNTER → 2017-01-27 | Outpatient (CLI) | payer BC ==
[2017-01-27 17:09] LABS: Basophils # (A) 0.1 k/uL (0-0.2); Basophils % (A) 1 %; CH 32.1; CHCM 34.4; Eosinophils # (A) 0.2 k/uL (0-0.7); Eosinophils % (A) 2 %; HCT 47.1 % (39.0-53.0); HDW 2.48; HGB 15.5 gm/dL (13.0-17.5); Luc # (Auto) 0.14; Luc % (Auto) 1; Lymphocytes # (A) 2.6 k/uL (1.0-4.8); Lymphocytes % (A) 24 %; MCH 30.9 pg (25.0-35.0); MCV 93.7 fL (80.0-100.0); Mean Platelet Volume 6.9; Monocytes # (A) 0.8 k/uL (0-1.0); Monocytes % (A) 7 %; Neutrophils # (A) 6.9 k/uL (1.3-7.7); Neutrophils % (A) 65 %; RBC 5.02 m/uL (4.30-5.90); WBC 10.7 k/uL (3.8-10.6); WBC (Perox) 10.54
== END | disposition home or self-care (01) ==
LOC: LABWHC1 16:30
PROVIDERS: ATTEND Internal Medicine
DX: J85.2 Abscess of lung without pneumonia (principal)
CPT/HCPCS: 36415; 85025

== ENCOUNTER 2018-03-13 12:03 | Emergency (ER) | payer BC ==
[2018-03-13 12:20] VITALS: TEMP 99.6
[2018-03-13] MEDS ORDERED: KETOROLAC 60 MG/2 ML VIAL IVP STA (12:21)
--- NOTE | 2018-03-13 12:26 | ED ---
General Adult HPI - General Chief complaint: Chest Pain Stated complaint: cough/shoulder & chest pain Time Seen by Provider: 03/13/18 12:05 Source: patient, RN notes reviewed Mode of arrival: ambulatory Limitations: no limitations - History of Present Illness Initial comments: This is a 37-year-old male who presents to the emergency Department complaining of pain To his left shoulder blade. Patient states it started 3 days ago and has continued to get worse patient states it's worse with coughing or taking a deep breath. Patient states he has some anterior chest pain now with cough or deep breathing. Patient states his anterior chest is nontender to palpation in the pectoralis muscle. Patient states the coughing a lot more lately and coughing up some sputum. Patient has not noted any fever or chills. Patient denies any palpitations. Patient denies being short of breath. Patient denies any diaphoresis. Patient denies any nausea vomiting diarrhea. Patient denies any abdominal pain. Patient states he is a smoker. Patient denies any leg swelling or calf tenderness. Patient states he has no chest pain if he remains still and does not cough or take a deep breath - Related Data Home Medications Medication Instructions Recorded Confirmed Omeprazole Magnesium [PriLOSEC OTC] 20 mg PO DAILY 01/18/17 01/18/17 Previous Rx's Medication Instructions Recorded Moxifloxacin HCl 400 mg PO DAILY #10 tab 01/21/17 Albuterol Inhaler [Ventolin Hfa 1 - 2 puff INHALATION Q6HR PRN #1 01/22/17 Inhaler] inhaler Folic Acid 1 mg PO DAILY #30 tablet 01/22/17 LORazepam [Ativan] 0.5 mg PO TID PRN #20 tab 01/22/17 Multivitamins, Thera [Multivitamin 1 each PO DAILY@1200 #30 tab 01/22/17 (formulary)] Nicotine 21Mg/24Hr Patch [Habitrol] 1 patch TRANSDERM DAILY #30 patch 01/22/17 Thiamine [Vitamin B-1] 100 mg PO DAILY #30 tablet 01/22/17 Azithromycin [Zithromax Tri-Humphrey] 500 mg PO DAILY #3 tab 03/13/18 Allergies Allergy/AdvReac Type Severity Reaction Status Date / Time codeine AdvReac Unknown Verified 03/13/18 12:13 Childhood Review of Systems ROS Statement: Those systems with pertinent positive or pertinent negative responses have been documented in the HPI. ROS Other: All systems not noted in ROS Statement are negative. Past Medical History Past Medical History: GERD/Reflux History of Any Multi-Drug Resistant Organisms: None Reported Additional Past Surgical History / Comment(s): As a child had lumps back of head -removed and found to be calcium deposits. Past Anesthesia/Blood Transfusion Reactions: No Reported Reaction Past Psychological History: Anxiety, Depression Smoking Status: Current every day smoker Past Alcohol Use History: None Reported Past Drug Use History: Marijuana - Past Family History Father Family Medical History: Coronary Artery Disease (CAD) Additional Family Medical History / Comment(s): Father had cardiac stents placed in his late 50's. He is now 64 yrs old. Mother Family Medical History: Pneumonia Additional Family Medical History / Comment(s): Mother gets pneumonia a couple times a year. She is 51 yrs old. General Exam - General Exam Comments Initial Comments: GENERAL: Patient is well-developed and well-nourished. Patient is nontoxic and well- hydrated and is in mild distress. ENT: Neck is soft and supple. No significant lymphadenopathy is noted. Oropharynx is clear. Moist mucous membranes. Neck has full range of motion without eliciting any pain. EYES: The sclera were anicteric and conjunctiva were pink and moist. Extraocular movements were intact and pupils were equal round and reactive to light. Eyelids were unremarkable. PULMONARY: Unlabored respirations. Good breath sounds bilaterally. No audible rales rhonchi or wheezing was noted. CARDIOVASCULAR: There is a regular rate and rhythm without any murmurs gallops or rubs. Patient 's chest pain is reproducible anteriorly. ABDOMEN: Soft and nontender with normal bowel sounds. No palpable organomegaly was noted. There is no palpable pulsatile mass. SKIN: Skin is clear with no lesions or rashes and otherwise unremarkable. NEUROLOGIC: Patient is alert and oriented x3. Cranial nerves II through XII are grossly intact. Motor and sensory are also intact. Normal speech, volume and content. Symmetrical smile. MUSCULOSKELETAL: Normal extremities with adequate strength and full range of motion. LYMPHATICS: No significant lymphadenopathy is noted PSYCHIATRIC: Normal psychiatric evaluation. Limitations: no limitations Course Vital Signs 03/13/18 03/13/18 12:10 12:20 Temperature 98.3 F 99.6 F Pulse Rate 89 Respiratory 18 Rate Blood Pressure 131/78 O2 Sat by Pulse 98 Oximetry Medical Decision Making - Medical Decision Making I discussed smoking cessation for greater than 3 minutes. The risks of smoking were discussed with the patient including but not limited to risks of cancer, stroke, coronary artery disease and COPD. Also discussed with the patient were multiple methods of quitting smoking. Lastly we discussed the financial costs of smoking. EKG shows normal sinus rhythm at a 69 bpm VA interval is 158 QRSs 86 QT interval 358 QTC is 383. Patient's EKG shows no ST segment elevation or depression or T wave abnormalities are noted Chest x-ray shows no acute abnormality. Portal seem to help the patient's pain considerably. - Lab Data Result diagrams: 03/13/18 12:50 03/13/18 12:50 Lab Results 03/13/18 03/13/18 03/13/18 Range/Units 12:50 12:50 12:50 WBC 10.0 (3.8-10.6) k/uL RBC 4.96 (4.30-5.90) m/uL Hgb 15.1 (13.0-17.5) gm/dL Hct 46.8 (39.0-53.0) % MCV 94.2 (80.0-100.0) fL MCH 30.5 (25.0-35.0) pg MCHC 32.3 (31.0-37.0) g/dL RDW 12.7 (11.5-15.5) % Plt Count 378 (150-450) k/uL Neutrophils % 72 % Lymphocytes % 18 % Monocytes % 6 % Eosinophils % 2 % Basophils % 1 % Neutrophils # 7.2 (1.3-7.7) k/uL Lymphocytes # 1.8 (1.0-4.8) k/uL Monocytes # 0.6 (0-1.0) k/uL Eosinophils # 0.2 (0-0.7) k/uL Basophils # 0.1 (0-0.2) k/uL PT (9.0-12.0) sec INR (<1.2) APTT (22.0-30.0) sec D-Dimer (<0.60) mg/L FEU Sodium 142 (137-145) mmol/L Potassium 4.6 (3.5-5.1) mmol/L Chloride 107 (98-107) mmol/L Carbon Dioxide 27 (22-30) mmol/L Anion Gap 8 mmol/L BUN 16 (9-20) mg/dL Creatinine 0.89 (0.66-1.25) mg/dL Est GFR (CKD-EPI)AfAm >90 (>60 ml/min/1.73 sqM) Est GFR (CKD-EPI)NonAf >90 (>60 ml/min/1.73 sqM) Glucose 88 (74-99) mg/dL Calcium 9.4 (8.4-10.2) mg/dL Magnesium 2.0 (1.6-2.3) mg/dL Total Bilirubin 0.7 (0.2-1.3) mg/dL AST 21 (17-59) U/L ALT 23 (21-72) U/L Alkaline Phosphatase 53 (38-126) U/L Total Creatine Kinase 70 (55-170) U/L CK-MB (CK-2) 1.0 (0.0-2.4) ng/mL CK-MB (CK-2) Rel Index 1.4 Troponin I <0.012 (0.000-0.034) ng/mL Total Protein 7.0 (6.3-8.2) g/dL Albumin 4.0 (3.5-5.0) g/dL 03/13/18 Range/Units 12:50 WBC (3.8-10.6) k/uL RBC (4.30-5.90) m/uL Hgb (13.0-17.5) gm/dL Hct (39.0-53.0) % MCV (80.0-100.0) fL MCH (25.0-35.0) pg MCHC (31.0-37.0) g/dL RDW (11.5-15.5) % Plt Count (150-450) k/uL Neutrophils % % Lymphocytes % % Monocytes % % Eosinophils % % Basophils % % Neutrophils # (1.3-7.7) k/uL Lymphocytes # (1.0-4.8) k/uL Monocytes # (0-1.0) k/uL Eosinophils # (0-0.7) k/uL Basophils # (0-0.2) k/uL PT 10.2 (9.0-12.0) sec INR 1.0 (<1.2) APTT 25.6 (22.0-30.0) sec D-Dimer 0.24 (<0.60) mg/L FEU Sodium (137-145) mmol/L Potassium (3.5-5.1) mmol/L Chloride (98-107) mmol/L Carbon Dioxide (22-30) mmol/L Anion Gap mmol/L BUN (9-20) mg/dL Creatinine (0.66-1.25) mg/dL Est GFR (CKD-EPI)AfAm (>60 ml/min/1.73 sqM) Est GFR (CKD-EPI)NonAf (>60 ml/min/1.73 sqM) Glucose (74-99) mg/dL Calcium (8.4-10.2) mg/dL Magnesium (1.6-2.3) mg/dL Total Bilirubin (0.2-1.3) mg/dL AST (17-59) U/L ALT (21-72) U/L Alkaline Phosphatase (38-126) U/L Total Creatine Kinase (55-170) U/L CK-MB (CK-2) (0.0-2.4) ng/mL CK-MB (CK-2) Rel Index Troponin I (0.000-0.034) ng/mL Total Protein (6.3-8.2) g/dL Albumin (3.5-5.0) g/dL Disposition Clinical Impression: Pleuritic pain, Bronchitis Disposition: HOME SELF-CARE Condition: Good Instructions: Pleurisy (ED), Acute Bronchitis (ED) Prescriptions: Azithromycin [Zithromax Tri-Humphrey] 500 mg PO DAILY #3 tab Is patient prescribed a controlled substance at d/c from ED?: No Referrals: Robinson Infante MD [Primary Care Provider] - 1-2 days Time of Disposition: 14:01
[2018-03-13 13:15] LABS: Basophils # (A) 0.1 k/uL (0-0.2); Basophils % (A) 1 %; Eosinophils # (A) 0.2 k/uL (0-0.7); Eosinophils % (A) 2 %; HCT 46.8 % (39.0-53.0); HGB 15.1 gm/dL (13.0-17.5); Lymphocytes # (A) 1.8 k/uL (1.0-4.8); Lymphocytes % (A) 18 %; MCH 30.5 pg (25.0-35.0); MCHC 32.3 g/dL (31.0-37.0); MCV 94.2 fL (80.0-100.0); Mean Platelet Volume 6.6; Monocytes # (A) 0.6 k/uL (0-1.0); Monocytes % (A) 6 %; Neutrophils # (A) 7.2 k/uL (1.3-7.7); Neutrophils % (A) 72 %; Platelet Count 378 k/uL (150-450); RBC 4.96 m/uL (4.30-5.90); RDW 12.7 % (11.5-15.5)
[2018-03-13 13:24] LABS: ALT 23 U/L (21-72); AST 21 U/L (17-59); Alkaline Phosphatase 53 U/L (38-126); Anion Gap 8 mmol/L; Blood Urea Nitrogen 16 mg/dL (9-20); Calcium 9.4 mg/dL (8.4-10.2); Carbon Dioxide 27 mmol/L (22-30); Chloride 107 mmol/L (98-107); Glucose 88 mg/dL (74-99); Potassium 4.6 mmol/L (3.5-5.1); Sodium 142 mmol/L (137-145); Total Bilirubin 0.7 mg/dL (0.2-1.3)
--- NOTE | 2018-03-13 13:24 | XR ---
EXAMINATION TYPE: XR chest 2V DATE OF EXAM: 03/13/2018 HISTORY: Chest Pain. REFERENCE: Previous study dated 02/18/2017. FINDINGS: The lungs remain clear. Pleural space are clear. The heart is not enlarged. There is no luis armando dence of pneumothorax. IMPRESSION: NORMAL CHEST.
[2018-03-13 13:29] LABS: D-Dimer 0.24 mg/L FEU (<0.60); Partial Thromboplastin Time 25.6 sec (22.0-30.0); Prothrombin Time 10.2 sec (9.0-12.0)
[2018-03-13 13:38] LABS: Creatine Kinase 70 U/L (55-170)
[2018-03-13 13:50] LABS: Troponin I <0.012 ng/mL (0.000-0.034)
[2018-03-13 14:15] VITALS: BP 101/69; PULSE 73; RESP 17
== END 2018-03-13 14:15 | disposition home or self-care (01) ==
LOC: EC 12:03
DX: J40 Bronchitis, not specified as acute or chronic (principal); M25.512 Pain in left shoulder; K21.9 Gastro-esophageal reflux disease without esophagitis; F17.200 Nicotine dependence, unspecified, uncomplicated; Z88.5 Allergy status to narcotic agent; Z79.899 Other long term (current) drug therapy; Z82.5 Family history of asthma and other chronic lower respiratory diseases; Z82.49 Family history of ischemic heart disease and other diseases of the circulatory system
CPT/HCPCS: 36415; 93005; 85379; 80053; 82550; 82553; 83735; 84484; 85025; 85610; 85730; 71046; 99285; 96374; 99406; J1885

== ENCOUNTER 2018-08-18 11:22 | Day surgery (SDC) | payer BC ==
[~2018-08-18 11:22] MED LIST: LACTATED RINGERS 1,000 ML IV SCH; LIDOCAINE 1% 20 ML VIAL (10MG/ML) FOR IV START INTRADERMA PRN; MIDAZOLAM (PF) 2 MG/2 ML VIAL IV PRN
[2018-08-18 11:50] VITALS: TEMP 98.5
[2018-08-18] MEDS ORDERED: LIDOCAINE 1% INJ 10MG/ML (20 ML MDV) ONE (13:18)
[2018-08-18] MEDS ORDERED: fentaNYL (PF) 50 MCG/ML 2 ML AMP ONE (13:18)
[2018-08-18] MEDS ORDERED: PROPOFOL 10 MG/ML 20 ML VIAL IV ONE (13:18)
[2018-08-18] MEDS ORDERED: KETAMINE 10 MG/ML 20 ML VIAL ONE (13:18)
[2018-08-18] MEDS ORDERED: GLYCOPYRROLATE 0.2 MG/ML 2 ML VIAL ONE (13:18)
[2018-08-18] MEDS ORDERED: MIDAZOLAM 2 MG/2 ML VIAL ONE (13:18)
--- NOTE | 2018-08-18 13:46 | P.PCN ---
Date of Procedure: 08/18/18 Description of Procedure: BRIEF HISTORY: The patient is a 38-year-old male with a history of uncontrolled reflux disease who presents for outpatient upper endoscopy. The patient reports current treatment with twice daily Zantac, omeprazole daily and Carafate with refractory symptoms. He also reports intermittent episodes of solid food dysphagia. No previous EGD reported. PROCEDURE PERFORMED: Esophagogastroduodenoscopy with biopsy. PREOPERATIVE DIAGNOSIS: GERD, esophageal dysphagia. ESTIMATED BLOOD LOSS: Minimal. IV sedation per anesthesia. PROCEDURE: After informed consent was obtained, the patient was brought into the endoscopy unit. IV sedation was administered by Anesthesia under continuous monitoring. Initially the Olympus GIF-190 video endoscope was inserted into the mouth. Esophagus intubated without any difficulty. It was gradually advanced into the stomach and duodenum and carefully examined. The bulb and the second part of the duodenum appeared normal, with biopsies taken. The scope at this time was withdrawn to the stomach, adequately insufflated with air, and upon careful examination, mucosa of the antrum, body, cardia and the fundus appeared grossly normal except for some mild scattered erythema of the antrum and body suggestive of mild gastritis with biopsies of the antrum and body taken. The scope was then withdrawn into the esophagus. The GE junction was located at 42 cm from the incisors, with biopsies taken given history of GERD refractory to medical treatment. The esophagus appeared normal, with mid esophageal biopsies taken in the setting of intermittent dysphagia. There were no erosions or ulcerations seen and the patient tolerated the procedure well. IMPRESSION: 1. Mild gastritis, biopsies antrum and body. 2. Duodenal biopsies, GE junction biopsies, but esophageal biopsies. RECOMMENDATIONS: The findings of this examination were discussed with the patient and his friend. Okay to resume diet. We'll recommend lifestyle modifications including not overreading, not eating late at night, avoiding trigger foods. Continue current medical therapy. Await pathology from biopsies.
[2018-08-18 13:52] VITALS: RESP 16
[2018-08-18 14:13] VITALS: BP 106/69; PULSE 81
== END 2018-08-18 14:34 | disposition home or self-care (01) ==
LOC: ORWHC2ENDO 11:22
PROVIDERS: ATTEND Internal Medicine
DX: K21.9 Gastro-esophageal reflux disease without esophagitis (principal); K29.50 Unspecified chronic gastritis without bleeding; F41.9 Anxiety disorder, unspecified; F32.9 Major depressive disorder, single episode, unspecified; F17.210 Nicotine dependence, cigarettes, uncomplicated; Z79.899 Other long term (current) drug therapy; Z88.5 Allergy status to narcotic agent
CPT/HCPCS: 43239; J2250; J2001; J3010; J2704; 88305

== ENCOUNTER 2018-12-18 18:43 | Emergency (ER) | payer BC, OTHER ==
[2018-12-18] MEDS ORDERED: SODIUM CHLORIDE 0.9% 1,000 ML IV STA (19:56)
[2018-12-18] MEDS ORDERED: KETOROLAC 30 MG/ML 1 ML VIAL IVP STA (19:57)
[2018-12-18] MEDS ORDERED: AMPICILLIN-SULBACTAM 3 GM in SODIUM CHLORIDE 0.9% 100 ML IVPB STA (19:57)
[2018-12-18 20:31] LABS: ALT 21 U/L (21-72); AST 24 U/L (17-59); African American GFR (CKD) >90 (>60 ml/min/1.73 sqM); Albumin 4.3 g/dL (3.5-5.0); Alkaline Phosphatase 62 U/L (38-126); Anion Gap 10 mmol/L; Blood Urea Nitrogen 12 mg/dL (9-20); Calcium 9.8 mg/dL (8.4-10.2); Carbon Dioxide 28 mmol/L (22-30); Chloride 102 mmol/L (98-107); Glucose 66 mg/dL (74-99); Non-African American GFR(CKD) >90 (>60 ml/min/1.73 sqM); Potassium 4.2 mmol/L (3.5-5.1); Sodium 140 mmol/L (137-145); Total Bilirubin 0.7 mg/dL (0.2-1.3); Total Protein 7.5 g/dL (6.3-8.2)
[2018-12-18 20:32] LABS: Basophils # (A) 0.1 k/uL (0-0.2); Basophils % (A) 0 %; Eosinophils # (A) 0.3 k/uL (0-0.7); Eosinophils % (A) 2 %; HCT 50.2 % (39.0-53.0); HGB 16.4 gm/dL (13.0-17.5); Lymphocytes # (A) 1.5 k/uL (1.0-4.8); Lymphocytes % (A) 10 %; MCH 30.4 pg (25.0-35.0); MCHC 32.8 g/dL (31.0-37.0); MCV 92.8 fL (80.0-100.0); Mean Platelet Volume 6.7; Monocytes % (A) 7 %; Neutrophils # (A) 12.4 k/uL (1.3-7.7); Neutrophils % (A) 81 %; Platelet Count 376 k/uL (150-450); RDW 14.8 % (11.5-15.5); WBC 15.4 k/uL (3.8-10.6)
--- NOTE | 2018-12-18 20:45 | ED ---
General Adult HPI - General Chief complaint: Dental/Oral Stated complaint: Abscess on Face Time Seen by Provider: 12/18/18 19:25 Source: patient, RN notes reviewed Mode of arrival: ambulatory Limitations: no limitations - History of Present Illness Initial comments: 38-year-old male with a past medical history of GERD, hematemesis, presents to the emergency department for a chief complaint of abscess of left mandibular area. Patient states that about a year ago he had an ingrown hair in this area and drained it himself by poking it with a needle. States that yesterday he started to have some pain and swelling in this area as well. States that y esterday he took a needle and poked it several times trying to express fluid was unsuccessful. States that he will go today and it was much larger. He denies any dental pain. Denies any fevers or chills. Denies trismus. Patient has no other complaints at this time including shortness of breath, chest pain, abdominal pain, nausea or vomiting, headache, or visual changes. - Related Data Home Medications Medication Instructions Recorded Confirmed Omeprazole Magnesium [PriLOSEC OTC] 20 mg PO BID 01/18/17 08/17/18 Mirtazapine [Remeron] 15 mg PO HS 08/17/18 08/17/18 Ranitidine HCl [Zantac] 150 mg PO BID 08/17/18 08/17/18 Sucralfate [Carafate] 1 gm PO ACHS 08/17/18 08/18/18 Previous Rx's Medication Instructions Recorded Amoxicillin/Potassium Clav 1 tab PO Q12HR #20 tab 12/18/18 [Augmentin 875-125 Tablet] Allergies Allergy/AdvReac Type Severity Reaction Status Date / Time codeine AdvReac Unknown Verified 08/18/18 11:33 Childhood Review of Systems ROS Statement: Those systems with pertinent positive or pertinent negative responses have been documented in the HPI. ROS Other: All systems not noted in ROS Statement are negative. Past Medical History Past Medical History: GERD/Reflux Additional Past Medical History / Comment(s): N/V worsening recently-sometimes blood in emesis, epigastric pain, wakes up @[facility] w/acid coming up throat, weight loss History of Any Multi-Drug Resistant Organisms: None Reported Additional Past Surgical History / Comment(s): As a child had lumps back of head-removed, bronchoscopy Past Anesthesia/Blood Transfusion Reactions: No Reported Reaction Past Psychological History: Anxiety, Depression Smoking Status: Current every day smoker Past Alcohol Use History: Rare Past Drug Use History: None Reported, Marijuana - Past Family History Father Family Medical History: Coronary Artery Disease (CAD) Additional Family Medical History / Comment(s): Father had cardiac stents placed in his late 50's. He is now 64 yrs old. Mother Family Medical History: Pneumonia Additional Family Medical History / Comment(s): Mother gets pneumonia a couple times a year. She is 51 yrs old. General Exam Limitations: no limitations General appearance: alert, in no apparent distress Head exam: Present: atraumatic, normocephalic, normal inspection Eye exam: Present: normal appearance, PERRL, EOMI. Absent: scleral icterus, conjunctival injection, periorbital swelling ENT exam: Present: normal exam, normal oropharynx (No dental abscesses noted. No pain with palpation of tongue blade. No pain with biting down on tongue blade. No sublingual edema), mucous membranes moist, TM's normal bilaterally, normal external ear exam, other (Patient has a large indurated area noted of the left lower mandible about 5 cm x 3 cm. No fluctuance noted.) Neck exam: Present: normal inspection, tenderness (Tenderness extending down the left lateral aspect of the neck with palpation), full ROM. Absent: meningismus, lymphadenopathy Respiratory exam: Present: normal lung sounds bilaterally. Absent: respiratory distress, wheezes, rales, rhonchi, stridor Cardiovascular Exam: Present: regular rate, normal rhythm, normal heart sounds. Absent: systolic murmur, diastolic murmur, rubs, gallop, clicks GI/Abdominal exam: Present: soft, normal bowel sounds. Absent: distended, tenderness, guarding, rebound, rigid Neurological exam: Present: alert Psychiatric exam: Present: normal affect, normal mood Course Vital Signs 12/18/18 19:05 Temperature 98.6 F Pulse Rate 112 H Respiratory 18 Rate Blood Pressure 113/71 O2 Sat by Pulse 99 Oximetry Medical Decision Making - Medical Decision Making 38-year-old male with a past medical history of GERD, hematemesis, presents to the emergency determine for a chief complaint of possible abscess of the left mandibular area. States that about a year ago had an ingrown hair and drained by poking himself with a needle in the area. States that yesterday he started have some pain and swelling as well. States he poked it with a needle again however was not able to express any fluid. States it is much larger today. The knife fevers or chills. Denies trismus. Denies any difficulty swallowing or handling secretions. On exam patient is a 5 cm x 5 cm area of induration noted to the inferior left mandible. CBC shows a white count of 15.4, could be reactive in nature. Glucose 66, patient currently eating a sandwich and juice. CT soft tissue neck shows focal soft tissue swelling in the left mandibular region consistent with a phlegmon. No drainable fluid collection. This measures approximately 13 mm in diameter. No cervical lymphadenopathy. Patient will be given Augmentin. This could be secondary to dental infection as patient has poor dentition. I did discuss the patient that he needs to follow strict return parameters including enlargement of this area, fevers, or any worsening symptoms. - Lab Data Result diagrams: 12/18/18 19:45 12/18/18 19:45 Lab Results 12/18/18 12/18/18 12/18/18 Range/Units 19:45 19:45 19:45 WBC 15.4 H (3.8-10.6) k/uL RBC 5.40 (4.30-5.90) m/uL Hgb 16.4 (13.0-17.5) gm/dL Hct 50.2 (39.0-53.0) % MCV 92.8 (80.0-100.0) fL MCH 30.4 (25.0-35.0) pg MCHC 32.8 (31.0-37.0) g/dL RDW 14.8 (11.5-15.5) % Plt Count 376 (150-450) k/uL Neutrophils % 81 % Lymphocytes % 10 % Monocytes % 7 % Eosinophils % 2 % Basophils % 0 % Neutrophils # 12.4 H (1.3-7.7) k/uL Lymphocytes # 1.5 (1.0-4.8) k/uL Monocytes # 1.0 (0-1.0) k/uL Eosinophils # 0.3 (0-0.7) k/uL Basophils # 0.1 (0-0.2) k/uL Sodium 140 (137-145) mmol/L Potassium 4.2 (3.5-5.1) mmol/L Chloride 102 (98-107) mmol/L Carbon Dioxide 28 (22-30) mmol/L Anion Gap 10 mmol/L BUN 12 (9-20) mg/dL Creatinine 0.86 (0.66-1.25) mg/dL Est GFR (CKD-EPI)AfAm >90 (>60 ml/min/1.73 sqM) Est GFR (CKD-EPI)NonAf >90 (>60 ml/min/1.73 sqM) Glucose 66 L (74-99) mg/dL Plasma Lactic Acid Ramiro 1.6 (0.7-2.0) mmol/L Calcium 9.8 (8.4-10.2) mg/dL Total Bilirubin 0.7 (0.2-1.3) mg/dL AST 24 (17-59) U/L ALT 21 (21-72) U/L Alkaline Phosphatase 62 (38-126) U/L Total Protein 7.5 (6.3-8.2) g/dL Albumin 4.3 (3.5-5.0) g/dL Disposition Clinical Impression: Phlegmon Disposition: HOME SELF-CARE Condition: Good Instructions (If sedation given, give patient instructions): Abscess (ED) Additional Instructions: Please take Augmentin as directed. Please follow-up with primary care in 1-2 days and take Motrin and Tylenol for pain. Return to the emergency department if you have any worsening symptoms. Prescriptions: Amoxicillin/Potassium Clav [Augmentin 875-125 Tablet] 1 tab PO Q12HR #20 tab Is patient prescribed a controlled substance at d/c from ED?: No Referrals: Robinson Infante MD [Primary Care Provider] - 1-2 days Time of Disposition: 21:49
--- NOTE | 2018-12-18 20:45 | CT ---
EXAMINATION TYPE: CT soft tissue neck w con DATE OF EXAM: 12/18/2018 8:34 PM COMPARISON: None HISTORY: PT states he's had an ingrown hair on LT side of face for about a year, and occasionally pop s it. PT popped it last night and woke up to a swollen, red mass. Pt states he has pain up into by hi s ears CT DLP: 203 mGycm Automated exposure control for dose reduction was used. CONTRAST: CT scan of the neck is performed following with IV Contrast, patient injected with 100 mL of Isovue 3 00. Axial images are obtained, coronal and sagittal reformatted images are reviewed. FINDINGS: There is normal aeration of the visualized paranasal sinuses. Parotid glands are symmetric. Submandib ular salivary glands are symmetric. There is no evidence of a pharyngeal mass. Tonsils are within nor mal limits. Prevertebral soft tissues are not enlarged. There is normal contrast opacification of the carotid and vertebral arteries and jugular veins. Thyroid gland is symmetric. Trachea appears intact . Epiglottis appears normal. There is asymmetric increased soft tissue density at the left submandibular region involving subcutan eous tissues. This measures approximate 13 mm in diameter. I see no discrete fluid collection. There are a few submandibular lymph nodes that measure less than 1 cm. Bony structures are intact. IMPRESSION: Focal soft tissue swelling in the left submandibular region consistent with a phlegmon. No drainable fluid collection seen. Nonspecific cervical lymph nodes.
[2018-12-18] MEDS ORDERED: AMOXIC-POT CLAV 875MG STARTER 2 EACH TABLET PO STA (21:50)
[2018-12-18 22:06] VITALS: BP 121/73; PULSE 83; RESP 16; TEMP 98.7
== END 2018-12-18 22:03 | disposition home or self-care (01) ==
LOC: EC 18:43
DX: L02.01 Cutaneous abscess of face (principal); K21.9 Gastro-esophageal reflux disease without esophagitis; F32.9 Major depressive disorder, single episode, unspecified; F17.200 Nicotine dependence, unspecified, uncomplicated; Z88.5 Allergy status to narcotic agent; Z79.899 Other long term (current) drug therapy
CPT/HCPCS: 36415; 80053; 83605; 85025; 87040; 70491; 99284; 96374; 96375; 96361; J1885; J0295; Q9967

== ENCOUNTER 2020-08-14 05:14 | Emergency (ER) | payer BC, OTHER ==
[2020-08-14 05:18] VITALS: BP 129/91; PULSE 94; RESP 18; TEMP 97.9
[2020-08-14] MEDS ORDERED: SODIUM CHLORIDE 0.9% 1,000 ML IV STA (05:37)
[2020-08-14] MEDS ORDERED: KETOROLAC 15 MG/ML 1 ML VIAL IVP STA (05:37)
[2020-08-14] MEDS ORDERED: DEXAMETHASONE SOD PHOSPHATE 10 MG/ML 1 ML VIAL IV STA (05:37)
[2020-08-14] MEDS ORDERED: AMPICILLIN-SULBACTAM 3 GM in SODIUM CHLORIDE 0.9% 100 ML IVPB STA (05:38)
--- NOTE | 2020-08-14 05:39 | ED ---
ENT HPI - General Chief complaint: Dental/Oral Stated complaint: RT side facial swelling Time Seen by Provider: 08/14/20 05:29 Source: patient, RN notes reviewed, old records reviewed Mode of arrival: ambulatory Limitations: no limitations - History of Present Illness Initial comments: This is a 4-year-old female DF for evaluation patient Dese for evaluation regards to patient swelling right-sided facial swelling right-sided jostling difficulty opening mouth. Patient has history of dental infection dental caries afebrile. Patient noted no tooth infection, pain is progressed for the last day and a half. It is now severe. Pain is worse when he swallows MD complaint: tooth pain, other (right facial pain) -: days(s) Location: tooth # Severity: moderate Severity scale (1-10): 5 Quality: aching Consistency: constant Improves with: none Worsens with: none Context- Dental: history of dental caries Associated Symptoms: pain with swallowing, sore throat - Related Data Previous Rx's Medication Instructions Recorded Amoxic-Pot Clav 875-125Mg 1 tab PO BID 10 Days #20 tab 08/14/20 [Augmentin 875-125] Allergies Allergy/AdvReac Type Severity Reaction Status Date / Time codeine AdvReac Unknown Verified 08/14/20 05:18 Childhood Review of Systems ROS Statement: Those systems with pertinent positive or pertinent negative responses have been documented in the HPI. ROS Other: All systems not noted in ROS Statement are negative. Past Medical History Past Medical History: GERD/Reflux Additional Past Medical History / Comment(s): N/V worsening recently-sometimes blood in emesis, epigastric pain, wakes up @[facility] w/acid coming up throat, weight loss History of Any Multi-Drug Resistant Organisms: None Reported Additional Past Surgical History / Comment(s): As a child had lumps back of head-removed, bronchoscopy Past Anesthesia/Blood Transfusion Reactions: No Reported Reaction Past Psychological History: Anxiety, Depression Smoking Status: Current every day smoker Past Alcohol Use History: Rare Past Drug Use History: None Reported, Marijuana - Past Family History Father Family Medical History: Coronary Artery Disease (CAD) Additional Family Medical History / Comment(s): Father had cardiac stents placed in his late 50's. He is now 64 yrs old. Mother Family Medical History: Pneumonia Additional Family Medical History / Comment(s): Mother gets pneumonia a couple times a year. She is 51 yrs old. General Exam Limitations: no limitations General appearance: alert, in no apparent distress Head exam: Present: atraumatic, normocephalic, normal inspection Eye exam: Present: normal appearance, PERRL, EOMI. Absent: scleral icterus, conjunctival injection, periorbital swelling ENT exam: Present: other (right facial edema) Neck exam: Present: normal inspection. Absent: tenderness, meningismus, lymphadenopathy Respiratory exam: Present: normal lung sounds bilaterally. Absent: respiratory distress, wheezes, rales, rhonchi, stridor Cardiovascular Exam: Present: regular rate, normal rhythm, normal heart sounds. Absent: systolic murmur, diastolic murmur, rubs, gallop, clicks GI/Abdominal exam: Present: soft, normal bowel sounds. Absent: distended, tenderness, guarding, rebound, rigid Extremities exam: Present: normal inspection, full ROM, normal capillary refill. Absent: tenderness, pedal edema, joint swelling, calf tenderness Back exam: Present: normal inspection Neurological exam: Present: alert, oriented X3, CN II-XII intact Psychiatric exam: Present: normal affect, normal mood Skin exam: Present: warm, dry, intact, normal color. Absent: rash Course Vital Signs 08/14/20 05:15 Temperature 97.9 F Pulse Rate 94 Respiratory 18 Rate Blood Pressure 129/91 O2 Sat by Pulse 99 Oximetry Medical Decision Making - Lab Data Result diagrams: 08/14/20 05:47 08/14/20 05:47 Lab Results 08/14/20 08/14/20 Range/Units 05:47 05:47 WBC 10.2 (3.8-10.6) k/uL RBC 5.33 (4.30-5.90) m/uL Hgb 16.3 (13.0-17.5) gm/dL Hct 47.8 (39.0-53.0) % MCV 89.7 (80.0-100.0) fL MCH 30.7 (25.0-35.0) pg MCHC 34.2 (31.0-37.0) g/dL RDW 12.8 (11.5-15.5) % Plt Count 431 (150-450) k/uL MPV 6.6 Neutrophils % 75 % Lymphocytes % 13 % Monocytes % 7 % Eosinophils % 4 % Basophils % 1 % Neutrophils # 7.7 (1.3-7.7) k/uL Lymphocytes # 1.3 (1.0-4.8) k/uL Monocytes # 0.7 (0-1.0) k/uL Eosinophils # 0.4 (0-0.7) k/uL Basophils # 0.1 (0-0.2) k/uL Sodium 139 (137-145) mmol/L Potassium 4.1 (3.5-5.1) mmol/L Chloride 101 (98-107) mmol/L Carbon Dioxide 29 (22-30) mmol/L Anion Gap 9 mmol/L BUN 17 (9-20) mg/dL Creatinine 1.04 (0.66-1.25) mg/dL Est GFR (CKD-EPI)AfAm >90 (>60 ml/min/1.73 sqM) Est GFR (CKD-EPI)NonAf 90 (>60 ml/min/1.73 sqM) Glucose 100 H (74-99) mg/dL Calcium 9.9 (8.4-10.2) mg/dL Phosphorus 4.0 (2.5-4.5) mg/dL Magnesium 2.1 (1.6-2.3) mg/dL Total Bilirubin 0.6 (0.2-1.3) mg/dL AST 29 (17-59) U/L ALT 24 (4-49) U/L Alkaline Phosphatase 77 (38-126) U/L Total Protein 7.9 (6.3-8.2) g/dL Albumin 4.6 (3.5-5.0) g/dL Disposition Clinical Impression: Sialoadenitis Disposition: HOME SELF-CARE Condition: Good Instructions (If sedation given, give patient instructions): Sialoadenitis (ED) Prescriptions: Amoxic-Pot Clav 875-125Mg [Augmentin 875-125] 1 tab PO BID 10 Days #20 tab Is patient prescribed a controlled substance at d/c from ED?: No Referrals: Farooq Alexandre MD [STAFF PHYSICIAN] - 1-2 days
[2020-08-14 06:07] LABS: Basophils # (A) 0.1 k/uL (0-0.2); Basophils % (A) 1 %; Eosinophils # (A) 0.4 k/uL (0-0.7); Eosinophils % (A) 4 %; HCT 47.8 % (39.0-53.0); HGB 16.3 gm/dL (13.0-17.5); Lymphocytes # (A) 1.3 k/uL (1.0-4.8); Lymphocytes % (A) 13 %; MCH 30.7 pg (25.0-35.0); MCHC 34.2 g/dL (31.0-37.0); MCV 89.7 fL (80.0-100.0); Mean Platelet Volume 6.6; Monocytes # (A) 0.7 k/uL (0-1.0); Monocytes % (A) 7 %; Neutrophils # (A) 7.7 k/uL (1.3-7.7); Neutrophils % (A) 75 %; Platelet Count 431 k/uL (150-450); RBC 5.33 m/uL (4.30-5.90); RDW 12.8 % (11.5-15.5); WBC 10.2 k/uL (3.8-10.6)
[2020-08-14 06:44] LABS: ALT 24 U/L (4-49); AST 29 U/L (17-59); African American GFR (CKD) >90 (>60 ml/min/1.73 sqM); Albumin 4.6 g/dL (3.5-5.0); Alkaline Phosphatase 77 U/L (38-126); Anion Gap 9 mmol/L; Blood Urea Nitrogen 17 mg/dL (9-20); Calcium 9.9 mg/dL (8.4-10.2); Carbon Dioxide 29 mmol/L (22-30); Chloride 101 mmol/L (98-107); Glucose 100 mg/dL (74-99); Magnesium 2.1 mg/dL (1.6-2.3); Non-African American GFR(CKD) 90 (>60 ml/min/1.73 sqM); Potassium 4.1 mmol/L (3.5-5.1); Sodium 139 mmol/L (137-145); Total Bilirubin 0.6 mg/dL (0.2-1.3); Total Protein 7.9 g/dL (6.3-8.2)
--- NOTE | 2020-08-14 07:57 | CT ---
The pre and 3-D medially related to the liver with the renal vein EXAMINATION TYPE: CT soft tissue ne ck w con DATE OF EXAM: 08/14/2020 COMPARISON: Heart size and HISTORY: Rt facial swelling CT DLP: 254.7 mGycm CONTRAST: CT scan of the neck is performed with IV Contrast, patient injected with 100 mL of Isovue 300. Contrast enhanced CT of the neck was performed from the skull base through the lung apices. AIRWAY: The supraglottic, glottic, and subglottic portions of the airway appear patent and free of mass. SALIVARY GLANDS: There is edema and phlegmon noted about the right submandibular gland felt to reflec t sialoadenitis. No drainable abscess. Adjacent lymph node measures 1 cm. Left submandibular gland is within normal limits as are the parotid glands. THYROID GLAND: No nodules or masses seen. LYMPH NODES: No adenopathy seen greater than 1cm. LUNG APICES: No nodule or mass is seen. OTHER: Vascular structures are patent. No significant degenerative change of the cervical spine. N o abscess seen. IMPRESSION: There is edema and phlegmon noted about the right submandibular gland felt to reflect sialoadenitis. No drainable abscess. Adjacent lymph node measures 1 cm.
[2020-08-14] MEDS ORDERED: AMOXIC-POT CLAV 875MG STARTER PACK 2 TAB BTL PO STA (08:02)
[2020-08-14] MEDS ORDERED: AMOXIC-POT CLAV 875-125MG 1 EACH TAB PO STA (08:02)
== END 2020-08-14 08:37 | disposition home or self-care (01) ==
LOC: EC 05:14
DX: K11.20 Sialoadenitis, unspecified (principal); K21.9 Gastro-esophageal reflux disease without esophagitis; F41.9 Anxiety disorder, unspecified; F32.9 Major depressive disorder, single episode, unspecified; F17.200 Nicotine dependence, unspecified, uncomplicated
CPT/HCPCS: 36415; 80053; 83735; 84100; 85025; 87040; 70491; 99284; 96365; 96375 ×2; J1100; J0295; J1885; Q9967